=== PATIENT | female | born 1995 | race Caucasian/White ===

== ENCOUNTER 2022-07-17 07:23 | Inpatient (IN) | payer OTHER, SELFPAY ==
[2022-07-17] VITALS (42 sets, daily range): BP systolic 102–148; BP diastolic 61–92; PULSE 73–137; RESP 16–20; TEMP 36.4–37; O2SAT 96–100
[2022-07-17 09:21] LABS: SARS PCR* Negative SARS-CoV-2 (Negative)
--- NOTE | 2022-07-17 10:56 | PM.OBHPLI ---
OB - H&P: HPI Labor/Induction History of Present Illness Time Seen by Provider: 10:57 Date Seen: 07/17/22 Chief Complaint: The patient is a 26 year old 1 para 0 at 38+2 weeks gestation by 5w US, who presents with contractions. Chief complaint: Maternity : 1 Para: 0 Narrative: Fabiola Taylor is a 26 year old female who presents at 38+2 weeks gestation by 5 wk US with contractions. uncomplicated. GBS negative. Found to be 4.5 cm/100/0 in triage, changed to 6 cm over the course of 1 hour of observation. Breathing through contractions. No leaking fluid. Desires waterbirth. Labs Blood type: A (+) positive Rubella: immune RPR/VDLR: nonreactive GBS status: negative HBsAG: negative Review of Systems Status of ROS: Reports: 10 or more systems reviewed and unremarkable except as noted in History and below Meds Home Medications and Allergies Home Medications Medication Instructions Recorded Confirmed Type sertraline 25 mg tablet mg 07/17/22 History OB - H&P: Exam Physical Exam: Vital signs: Temp Pulse Resp BP Pulse Ox 97.5 F L 86 16 120/71 98 07/17/22 10:39 07/17/22 10:00 07/17/22 09:54 07/17/22 10:00 07/17/22 06:17 Narrative: General appearance: Well-appearing adult female. Alert, oriented and appropriate. Sitting up in waterbirth tub. Breathing through contractions. HEENT: EOMI, no conjunctival injection. Nares patent, no nasal discharge. Mucous membranes moist. Neck: Supple. Cardiovascular: Regular rate and rhythm, no rubs, murmurs or extra heart sounds. Pulmonary: Clear to auscultation bilaterally. No wheezes, rales or rhonchi. Abdomen: Gravid. MSK: Moves all extremities. Extremities: Warm and well perfused. Skin: No rashes appreciated over exposed skin. Neuro: Cranial nerves 2-12 grossly intact. No focal deficits. Psych: Appropriate affect. Detailed Labor and Delivery Exam: Dilation (cm): 7 Effacement (%): 100 Comments: Per nursing Fetus (Single): Station: 0 Heart Rate Baseline: 140 Monitor Decelerations: None Fetus B: Amniotic membrane status: intact OB - Problem Based A/P Additional Plan (1) Anxiety: Status: Acute (2) Term : Status: Acute Plan - Active labor. Progressing as expected - Desires waterbirth, low risk and no contraindications at this time - Intermittent monitoring. Current status reassuring - GBS negative - Anticipate vaginal delivery
--- NOTE | 2022-07-17 14:04 | W.PM.VAGDELN ---
OB Procedure Vag Delivery Mother Details Mother Details: The patient is a 26 year-old, 1, Para 0, admitted on 07/17/22 at 40+2 days gestation. : 1 Para: 0 Weeks Gestation: 40.2 Admission Date: 07/17/22 Additional Details Amniotic Membrane Status: SROM Amniotic Membrane Rupture Date: 07/17/22 Amniotic Membrane Fluid Description: Clear Analgesia/Anesthesia Type: None Waterbirth: Yes [place]: Yes Intrapartal Events: None Labor Onset: 0300 Pushin:48 Heart: heart tones during second stage were category I. Delivery Details Delivery Date: 07/17/22 Delivery Time: 14:15 Route of delivery: Gender: Male Viability: Alive; Heart Rate Present Position at Delivery: OA Delivery Details: Delivered over intact perineum via spontaneous vaginal delivery on hands and knees. Infant was placed on maternal chest in the waterbirth tub.? Cord was clamped and cut after a 3-5 minute delay. Nose and mouth were bulb suctioned.? Infant weight pending. Mother was assisted to hospital bed for delivery of placenta. 1 Minute Interval Total Score: 8 5 Minute Interval Total Score: 9 Additional Details Shoulder Dystocia: No Placenta Delivery Time: 13:30 Placental Delivery Description: Spontaneous Delivery repair: Vicryl Procedure Done: Global Estimated Blood Loss: 500 Laceration: Periurethral - 1st Degree Episiotomy Description: None Blood Loss Measurement Type: QBL (Estimated 300 cc in the waterbith tub + 200 cc measured in the drape.) Bakri Used: No Sponge/Need Count Correct: Yes Cord Vessel Description: 3 Vessels Event Summary Status: Mother and were stable after delivery.
[2022-07-17] MEDS: ACETAMINOPHEN 500 MG TABLET 1000 MG PO ×2 (14:29→20:28)
[2022-07-17] MEDS: IBUPROFEN 600 MG TABLET PO (18:22)
[2022-07-18] MEDS: IBUPROFEN 600 MG TABLET PO ×4 (01:36→23:08)
[2022-07-18 01:38] VITALS: BP 124/87; PULSE 75; RESP 16; TEMP 36.7; O2SAT 97
[2022-07-18 06:21] LABS: Hemoglobin* 10.5 gm/dL (12.0-16.0)
[2022-07-18] MEDS: ACETAMINOPHEN 500 MG TABLET 1000 MG PO ×3 (06:51→19:56)
[2022-07-18 07:55] VITALS: BP 113/75; PULSE 81; RESP 18; TEMP 36.5; O2SAT 97
[2022-07-18 11:40] VITALS: BP 126/83; PULSE 79; RESP 18; TEMP 36.6; O2SAT 97
[2022-07-18 16:44] VITALS: BP 127/82; PULSE 88; RESP 18; TEMP 36.4; O2SAT 96
--- NOTE | 2022-07-18 17:09 | P.OBPN_ITS ---
OB - PN:Subj Subjective Date Seen: 07/18/22 Interval history: Fabiola is a pp day 1 seen for routine follow up. she is nursing and this is going well. Bleeding is moderate to heavy with one larger clot this afternoon. Pain is well managed. Patient comments OB post-: pain well controlled and tolerating diet [place] status: and doing well feeding status: exclusively OB - PN: Obj Exam Physical Exam: Vital signs: Temp Pulse Resp BP Pulse Ox O2 Del Method 97.5 F L 88 18 127/82 96 07/18/22 16:44 07/18/22 16:44 07/18/22 16:44 07/18/22 16:44 07/18/22 16:44 07/18/22 16:44 Constitutional: Constitutional: no acute distress Routine Abdominal Exam: Fundus: Present firm Comments: 1 cm below umbilicus. OB - PN: Obj Data Labs Labs: Laboratory Results - last 24 hr 07/18/22 06:10 Hgb 10.5 L OB - PN: A/P Vaginal Delivery Assessment and Plan (1) Anxiety: Status: Acute (2) Term : Status: Acute Assessment and Plan: s/p vaginal delivery. Plan Routine post cares. Likely discharge tomorrow.
[2022-07-18 23:30] VITALS: BP 121/75; PULSE 76; RESP 18; TEMP 36.6; O2SAT 96
[2022-07-19] MEDS: ACETAMINOPHEN 500 MG TABLET 1000 MG PO (02:04)
[2022-07-19] MEDS: IBUPROFEN 600 MG TABLET PO (05:55)
[2022-07-19 07:55] VITALS: BP 120/83; PULSE 91; RESP 16; TEMP 36.6; O2SAT 96
[2022-07-19 08:26] LABS: Hemoglobin* 10.2 gm/dL (12.0-16.0)
--- NOTE | 2022-07-19 09:13 | PM.OBDSVD1 ---
DS: Providers Provider Date Seen: 07/19/22 Date of admission: 07/17/22 07:23 Primary care physician: Not a Local Provider Admitting Clinician: Aleisha Mackey MD Attending Physician on discharge: Aleisha Mackey MD DS: Diagnosis Discharge Diagnosis (1) Term : Status: Acute (2) Vaginal delivery: Status: Acute Exam Const: Vital Signs, click to edit/add: Vital Signs - 24 hr 07/18/22 11:40 07/18/22 16:44 07/18/22 23:30 Temperature 97.8 F 97.5 F L 97.9 F Pulse Rate [Right Pulse Oximeter] 79 88 76 Respiratory Rate 18 18 18 Blood Pressure [Ri ght Arm] 126/83 127/82 121/75 Pulse Oximetry 97 96 96 Oxygen Delivery Me thod Room Air Room Air Room Air 07/19/22 07:55 Temperature 97.9 F Pulse Rate [Right Pulse Oximeter] 91 Respiratory Rate 16 Blood Pressure [Ri ght Arm] 120/83 Pulse Oximetry 96 Oxygen Delivery Me thod Room Air Common normals: no apparent distress GI: Common normals: Normal to inspection, nondistended, normoactive bowel sounds present and soft to palpation Palpation: soft Other: uterus firm 1 cm below umbilicus OB - DS: Summary Hospital Course Hospital Course: The patient is a 26 year old G 1 P 1 at 38+2 weeks gestation that was admitted to the Center on 07/17/22 for active labor. She had an uncomplicated vaginal delivery. She delivered a viable male . She is breast feeding. the patient has done well. Peripartum Data Infant delivery method: Vaginal Laceration description: Perineal - 1st Degree complications: none [place] Infant Gender: Male Infant Discharge Plan: Home Status at Discharge Functional status at discharge: independent ambulation Overall status at discharge: patient is progressing back to baseline Time Spent with Patient Time attestation: Total time spent providing and/or coordinating discharge services: Time spent: Less than 30 minutes Discharge Plan Discharge Disposition: Home, Self-Care Date of Admission: 07/17/22 07:23 Primary Care Provider: Provider,Not a Local Condition: Improved Anticipated Discharge Date/Time: 07/19/22 09:16 Discharge Medications: Continued sertraline 25 mg tablet 25 mg PO Q24H Discharge Orders: Discharge Order (Routine); Ordered 07/19/22 Ordered By: Rosaura Oates Patient Education: OB Vaginal/Breast Feeding Activity Level: No Restrictions Activity Detail: nothing per vagina x6 weeks, off work x6 weeks. Discharge Diet: Regular Follow Up Appointments: Provider,Not a Local [Primary Care Provider] - Rosaura Oates MD [Staff Physician] - (in 6 weeks.) Forms: [facility] Info Instructions
[2022-07-19] MEDS: DOCUSATE SODIUM 100 MG CAPSULE PO (09:19)
== END 2022-07-19 13:41 | disposition home or self-care (01) | DRG 807 ==
LOC: OB OUT 07:24 → OB 07:24
PROVIDERS: Family Medicine; Admitting Provider Family Medicine; Visit Provider Family Medicine
DX: O70.0 First degree perineal laceration during delivery (principal); Z37.0 Single live birth; F41.9 Anxiety disorder, unspecified; Z3A.38 38 weeks gestation of pregnancy; O99.344 Other mental disorders complicating childbirth
CPT/HCPCS: 36415; 85018; 87635; A9270

== ENCOUNTER 2022-07-20 11:22 | Outpatient (CLI) | payer OTHER, SELFPAY ==
--- NOTE | 2022-07-20 16:35 | W.PM.LAC.MC ---
Consult Note - Mom Date of Visit Date of visit: 07/20/22 windows consultant: Alvina Last Visit Code: Visit Patient's Information Phone number: [phone] : 1 Para: 1 Allergies topiramate [From Topamax] Allergy (Mild, Verified 07/18/22 18:24) mushrooms Allergy (Intermediate, Uncoded 07/18/22 18:24) Mother's Medical History: Medical History (Updated 07/19/22 @ 09:14 by Rosaura Oates MD) depression/anxiety Delivery Information Delivery type: Vaginal Weeks Gestation: 38.0 Gestational Age: AGA Weight: 3.925 kg Discharge Weight: 3.697 kg Baby's Information Medications: sertraline, ibuprofen prn, mv, vitamin d Baby's Age at Visit: 3 days Baby's Provider or Clinic: Dr. Oates Jaundice: No Reason for Consult Reason for Consult: difficulty latching Past Experience Past Experience: No Current Frequency of Day Feedings: about every three hours around the clock Both Breasts: Yes Suck: not very aggressive Latch: fairly wide Length of Time: 10 - 15 minutes/side Pumping Pumping: No Supplementing EMB Supplement: No Formula Supplement: Yes (supplemented with 1 - 2 oz formula twice d/t difficulty latching/baby upset) Baby Elimination Number of Wet Diapers a Day: 2 - 3; uric acid crystals Number of BM a Day: no BM since D/C on 07/19 Breast/Nipple Condition Breast Information: WNL Engorgement: No (milk beginning to come in ) Maternal Nipple Condition - Left: Cracking/ Fissures Maternal Nipple Condition - Right: Common Nipple Sore Nipples: Yes Interventions for Sore Nipples: Lansinoh and Soothies Onsite Pre-Feed weight: 3.61 kg Post-Feed weight: 3.634 kg Milk Transferred (mL): 24 Pre-Nursing Left Nipple: Within Normal Limits (scabbing) Pre-Nursing Right Nipple: Within Normal Limits Post-Nursing Left Nipple: Within Normal Limits (scabbing ) Post-Nursing Right Nipple: Within Normal Limits Assessments/Interventions Assessments/Interventions: Met with mom and this now 3 day old ex- term AGA baby for consult. Mom reports has been very painful since D/C on 07/19 and her left nipple is cracked. Baby is nursing every three hours and she offers both sides, states a nursing session is 10 - 15 minutes/side. She hasn't started pumping yet but has a Spectra. Reports baby was given 1 - 2 oz formula twice since D/C when she was in too much pain to nurse. Breasts WNL- symmetrical with rounded lower quadrants, intramammary distance is < 1.5 cm. Nipples are shorter but everted and don't flatten or retract on compression. Left has stage II nipple damage with about a 2 mm fissure along the top that is beginning to scab, no damage to the right. Baby has lost 87 grams since D/C and is now 8% below BW at three DOL. Per POC he did not have a caput or cephalohematoma on delivery and in the short time he's been home they haven't noticed that he favors turning his head to one side or the other; also has good ROM when moving his extremities. His palate is narrower than normal, but not necessarily high. His upper lip was not difficult to flange and the upper frenulum appears to be WNL. He does not have a very aggressive suck on a finger but his tongue extends past the gum line and has good lateral movement. His lower frenulum appears to be WNL. POC report pink tinged urine at the last few diaper changes and no BM since D/C. Mom latched baby to the left breast and the latch was fairly wide but she rated her pain at 5/10 stating it was pinchy and that as the feeding progressed she began to have tingling/stinging/itchy sensation from the nipple into her breast. Some improvement when she was encouraged to really point her nipple to baby's nose and his upper frenulum was flanged. She switched baby to the right and that side was a little more comfortable. After about a 30 minute feeding baby had transferred 24 ml. He was still very hungry so dad was given 20 ml formula and shown how to pace feed. Plan: 1. Continue to breastfeed every 2 - 3 hours; ok to only nurse on the right for 12 - 24 hours it it's too painful to nurse on the left. Work on getting a deep latch with the flipple and dad can flange baby's upper lips to see if that increases the comfort. 2. Pump the left breast (or both) with every feeding. Nipples were measured and flange size suggested; also gave a flange fit guide. 3. Dad to supplement with 15 - 20 ml EBM or formula after every feeding (this feeding plan can be re-evaluated at his NB visit on 07/21/22). 4. To help strengthen his suck and help him flange the upper lip, gave dad three exercises to try: squishy face, rubbing the upper frenulum, and tug of war. 5. Suggested mom use colostrum and leave her nipples open to air to help them heal. 6. Will f/u by phone on 07/22/22. Meds Home Medications and Allergies Home Medications Medication Instructions Recorded Confirmed Type sertraline 25 mg tablet 25 mg PO Q24H 07/17/22 07/18/22 History Allergies Allergy/AdvReac Type Severity Reaction Status Date / Time topiramate [From Topamax] Allergy Mild Verified 07/18/22 18:24 mushrooms Allergy Intermediate Uncoded 07/18/22 18:24
== END 2022-07-20 11:23 | disposition home or self-care (01) ==
PROVIDERS: Visit Provider Family Medicine
DX: Z39.1 Encounter for care and examination of lactating mother (principal)
CPT/HCPCS: 99211

== ENCOUNTER 2024-08-27 10:32 | Emergency (ER) | payer BC, SELFPAY ==
--- OUTSIDE RECORDS SUMMARY | 2024-08-27 10:35 | XMS_ITS | Clinical Summary ---
Author Organization [employer] [facility] Address [facility] [place] [address] Care Team Providers Care Barytes Grinder Name Role Phone Rosaura Oates MD Primary Care Provider Allergies Active Allergy Reactions Criticality Noted Date Comments Duloxetine Anxiety 05/17/2021 Maitake Mushroom *Unknown High 07/18/2022 Mold Extracts 05/24/2010 Rash and swollen face Ragweed 05/24/2010 Topiramate *Unknown Low 07/18/2022 Medications multivitamin (MVI) tablet Take 1 Tablet by mouth once daily. 0 2 Active triamcinolone (ARISTOCORT; KENALOG) 0.1 % creamIndications:A cute eczema Apply topically to affected area(s) three times daily. 80 g 3 Active LORazepam (ATIVAN) 1 mg tabletIndications: Claustrophobia Take 1 Tablet (1 mg) by mouth one time for 1 dose. Take 30-60 minutes prior to MRI 1 Tablet 3 Active cyclobenzaprine (FLEXERIL) 10 mg tabletIndications: Chronic tension-type headache, intractable Take 1 Tablet (10 mg) by mouth 3 times daily if needed for Muscle Spasm. 30 Tablet 4 Active SUMAtriptan (IMITREX) 50 mg tabletIndications: Chronic migraine without aura without status migrainosus, not intractable Take 1 Tablet (50 mg) by mouth one time if needed for Migraine. Give at minimum 2hrs apart. Max Dose: 200mg per 24hrs. 15 Tablet 5 4 Active omeprazole 20 mg tabletIndications: Gastritis, presence of bleeding unspecified, unspecified chronicity, unspecified gastritis type Take 1 Tablet (20 mg) by mouth once daily before a meal. 90 Tablet 4 Active ondansetron 4 mg disintegrating tabletIndications: Nausea Place 1 Tablet (4 mg) on the tongue every 8 hours if needed for Nausea/Vomiti ng. 12 Tablet 5 Active Active Problems Problem Noted Date Diagnosed Date 12/23/2021 Overview (05/02/2022): Estimated Date of Delivery: 07/29/22 Patient's last menstrual period was 10/14/2021. US - 03/14/22 IMPRESSION: Sonographic gestational age 21 weeks 3 days and sonographic due date 07/22/2022. Sonographic age is 1 week ahead of the clinical age. No intrinsic abnormalities noted on anatomic survey. Last Tdap- 03/16/2018 Last Flu vaccine- 02/28/2022 Glucose (GTT) result- Component Latest Ref Rng & Units 04/27/2022 HEMOGLOBIN 12.0 - 16.0 g/dL 12.2 MCV 80 - 100 fL 94 GLUCOSE,GESTATIONAL 65 - 140 mg/dL 76 TREPONEMA PALLIDUM Negative Negative HEPATITIS C ANTIBODY Non-Reactive Non-Reactive Allergies Allergen Reactions Cymbalta [Duloxetine] Anxiety Mold Extracts Rash and swollen face Ragweed OB History Para Term AB Living 1 0 0 0 0 0 SAB IAB Ectopic Multiple Live Births 0 0 0 0 0 # Outcome Date GA Lbr Fareed/2nd Weight Sex Delivery Anes PTL Lv 1 Current Create lab flowsheet for OB labs- Component Latest Ref Rng & Units 11/18/2021 11/18/2021 11/18/2021 1:01 PM 1:01 PM 1:01 PM WHITE BLOOD COUNT 4.5 - 11.0 thou/cu mm 6.3 RED BLOOD COUNT 4.00 - 5.20 mil/cu mm 4.30 HEMOGLOBIN 12.0 - 16.0 g/dL 13.5 HEMATOCRIT 33.0 - 51.0 % 38.5 MCV 80 - 100 fL 90 MCH 26.0 - 34.0 pg 31.4 MCHC 32.0 - 36.0 g/dL 35.1 RDW 11.5 - 15.5 % 11.9 PLATELET COUNT 140 - 440 thou/cu mm 243 MPV 6.5 - 11.0 fL 9.0 NEUTROPHILS % 55.6 LYMPHOCYTES % 34.2 MONOCYTES % 8.9 EOSINOPHILS % 1.1 BASOPHILS % 0.2 ABSOLUTE NEUTROPHILS 1.7 - 7.0 thou/cu mm 3.5 ABSOLUTE LYMPHOCYTES 0.9 - 2.9 thou/cu mm 2.2 ABSOLUTE MONOCYTES <0.9 thou/cu mm 0.6 ABSOLUTE EOSINOPHILS <0.5 thou/cu mm 0.1 ABSOLUTE BASOPHILS <0.3 thou/cu mm 0.0 RUBELLA IGG ANTIBODY Positive 1.25 ANTIBODY SCREEN Negative Negative SPECIMEN EXPIRATION DATE/TIME 11/21/21 23:59 TREPONEMA PALLIDUM Negative Negative HBSAG Nonreactive Nonreactive ABORH A Rh Positive HIV-1/HIV-2 ANTIBODY Non-Reactive Non-Reactive Past Medical History: . Date Allergic rhinitis, cause unspecified Past Surgical History: . Laterality Date right tibia-fibula fx 07/18/06 TONSIL AND ADENOIDECTOMY 03/27/02 No data on file. 1 Problems (from 11/18/21 to present) No problems associated with this episode. Ness Santiago RN .................... 05/02/2022 11:33 AM Anxiety 06/28/2013 Constipation 01/07/2010 Acne 01/07/2010 Regular astigmatism 12/16/2005 Hypermetropia 12/16/2005 Estimated Date of Delivery Comme nts Yes 03/28/2025 Encounters Date Type Department Care Team Description 08/27/2024 Nurse Triage [facility] [address] [place] [address] Rosaura Oates MD Abdominal Pain 08/23/2024 1:10 PM CDT Office Visit [facility] [address] [place] [address] Adriana Leigh, Dysuria (Dysuria and low back pain, also feeling tingling before and after urinating and feeling like unable to fully empty starting 08/23 as well as small amount brownish discharge. ) 08/23/2024 Travel 08/23/2024 Nurse Triage [facility] [address] [place] [address] Rosaura Oates MD Urinary Problem 08/21/2024 Nurse Triage [facility] [address] [place] [address] Rosaura Oates MD Cervical pain 08/19/2024 1:45 PM CDT Ancillary Procedure [address] [address] 08/19/2024 Travel 08/14/2024 10:40 AM CDT OB Encounter [address] [address] Education (RN OB intake) 08/14/2024 Travel 08/12/2024 Telephone [facility] [address] [place] [address] Rosaura Oates MD Headache (Migraine); Nausea 06/21/2024 Telephone [facility] [address] [facility] [place] [address] Gucci Randolph MD Results 06/19/2024 9:10 AM TEST CONSULTANT Office [place] [facility] [address] [place] [address] Gucci Randolph MD Urinary Problem (Frequency, urgency) 06/19/2024 Travel from Last 3 Months Immunizations Immunization Administration Dates Next Due COVID-19 vaccine (Moderna 100mcg/0.5mL) PF, MDV 10/27/2020,09/29/2020 COVID-19 vaccine (Moderna Tima phoebe 50mcg/0.25mL) PF, MDV 07/06/2021 DTP 08/22/1997, 7,05/09/1996,02/21,1995 HIB PRP-OMP (PedvaxHIB) 11/26/1996,05/09,02/22/1996,12/20 Hepatitis B (Peds) 05/09/1996,1995, 996 Human Papilloma Virus Vaccine 11/30/2010, 008,01/17/2008 INFLUENZA, IIV3 PF (AGE >= 6 MO) 02/07/2024,06/2008 Influenza A (H1N1), Inactiva mari (Age >=3 Years) 03/23/2009 Influenza, IIV3 (Age >=3 years) 04/16/2010,06/22 Influenza, IIV4 02/24/2023,,05/07/2021,03/16,02/23/2017,01/26/2016,03/11/2015 MENINGOCOCCAL VACCINE 2 VIAL 2MO-55YO (MENVEO) 02/23/2017 MMR 11/03/2000,08/22/1997 Meningococcal, Unspecified 01/17/2008 Oral Polio Vaccine 08/22/1997, 7,02/22/1996,12/20 Tdap 05/27/2022,03/16/2018,01/17/2008 Family History Medical History Relation Name Comments Kidney cancer Father Diabetes insipidus Half-Sister 1 Jennifer Autism spectrum disorder Half-Sister 2 Addi No Known Problems Half-Sister 3 No Known Problems Half-Sister 4 No Known Problems Half-Sister 5 No Known Problems Half-Sister 6 Heart attack Maternal Grandfather Heart failure Maternal Grandmother Thyroid Disease Maternal Grandmother hypo thyroidism Seizures Maternal Uncle No Known Problems Mother No Known Problems Paternal Grandfather No Known Problems Paternal Grandmother Good Health Son Mcintosh Relation Name Status Comments Father Alive Half-Sister 1 Jennifer Alive Half-Sister 2 Addi Alive Half-Sister 3 Alive Half-Sister 4 Alive Half-Sister 5 Alive Half-Sister 6 Alive Maternal Grandfather Alive Maternal Grandmother Alive Maternal Uncle Mother Alive Paternal Grandfather Paternal Grandmother Alive Son Mcintosh Social History Tobacco Use Types Packs/Day Years Used Date Smoking Tobacco: Never Smokeless Tobacco: Never Tobacco Cessation:Counseling Given: Yes Comments:no exposure at home Alcohol Use Standard Drinks/Week Comments Not Currently 0 (1 standard drink = 0.6 oz pur e alcohol) PHQ-2 Answer Date Recorded PHQ-2 TOTAL SCORE 1 10/18/2023 Social Connections Answer Date Recorded Do you often feel lonely or isolated from those around you? 0 10/18/2023 Financial Resource Strain Answer Date R ecorded Difficulty of Paying Living Expenses 3 10/18/2023 Difficulty of Paying Living Expenses Not on file 10/18/2023 Food Insecurity Answer Date Recorded Do you worry your food will run out before you are able to buy more? 1 10/18/2023 Transportation Needs Answer Date Record ed Does lack of transportation keep you from medica l appointments? 1 10/18/2023 Does lack of transportation keep you from work, meetings or getting things that you need? 1 10/18/2023 Housing Stability Answer Date Recorded What is your housing situation today? 1 10/18/2023 Utilities Answer Date Recorded Do you have trouble paying f or utilities (for example, heat, electricity, water, phone)? 1 10/18/2023 Estimated Date of Delivery Comme nts Yes 03/28/2025 Sex and Gender Information Value Date Recorded Sex Assigned at Not on file Legal Sex Female 5:27 AM TEST CONSULTANT Gender Identity Not on file Sexual Orientation Not on file Obstetrics History Para Term AB IAB SAB Ectopic Multiple Livin g Live Births 2 1 1 1 1 Date Outcome GA Total Labor Labor/2nd/3rd Weight Sex Type Anes PTL Radha A1 A5 Name Clin 07/17 Term 38w 2d M Waterbi rth N Livin g Lincol n Complications:None Current Summary Episode Dates Number of Fetuses Estimated Date of Delivery 08/14/2024 - Present (08/27/2024) 03/28/2025 (set by Whitney Oakley LPN on 08/14/2024 based on Last Menstrual Period on 06/21/2024 (Exact Date)) Dating Summary Based On BEE GA Diff Last Menstrual Period on 06/21/2024 (Exact Date) 03/28/2025 Working Notes Progress Notes - OB Encounte r - 08/14/2024 - GA:7w5d 08/14/2024 - 7w5d - Ness Santiago, RN SUBJECTIVE: Fabiola Taylor is a 28 y.o. female, , who presents for confirmation and ob education. Patient presents to the clinic alone. Had positive test at home. This was Planned, Desired. Patient was not on contraception. Date Reliability: definite BEE based on LMP: Estimated Date of Delivery: 02/26/25 Current symptoms include: Nausea:Yes Vomiting:Yes - x1 only Breast tenderness:Yes Vaginal bleeding:No Vaginal discharge:Yes - creamier than usual, but no irritation or odor Pelvic cramping:Yes - mild menstrual cramping, comes and goes Fatigue:Yes - not sleeping well Previous Delivery Type: normal vaginal delivery- waterbirth Occupation of patient: [employer] Name of Partner or Father of baby: Ambroiso. MENSTRUAL HISTORY: Patient's last menstrual period was 05/22/2024 (exact date).: Cycle Regularity: regular, every 28-30 days Past Medical History: . Date Allergic rhinitis, cause unspecified Depression Migraine headache STD (sexually transmitted disease) 2009 chlamydia Varicella 1999 OB History Para Term AB Living 2 1 1 1 SAB IAB Ectopic Multiple Live Births 1 # Outcome Date GA Lbr Fareed/2nd Weight Sex Type Anes PTL Lv 2 Current 1 Term 07/17/22 38w2d M Waterbirth N RADHA 5P'S SUBSTANCE ABUSE SCREEN FOR ALCOHOL, DRUGS AND TOBACCO: Did any of your parents have a problem with using alcohol or drugs? No Do any of your friends (peers) have problems with drug or alcohol use? No Does your partner have a problem with drug or alcohol use? No Before you knew you were , how often did you drink beer, wine, wine coolers or liquor or use any kind of drug? Not at all In the past month, how often did you drink beer, wine, wine coolers or liquor or use any kind of drug? Not at all How much did you smoke, vape or use tobacco or nicotine in any form before you knew you were ? Don't Smoke, Vape or use Tobacco Genetic Screening No data filed CURRENT MEDICATIONS: Current Outpatient Medications Medication Sig cyclobenzaprine (FLEXERIL) 10 mg tablet Take 1 Tablet (10 mg) by mouth 3 times daily if needed for Muscle Spasm. LORazepam (ATIVAN) 1 mg tablet Take 1 Tablet (1 mg) by mouth one time for 1 dose. Take 30-60 minutes prior to MRI multivitamin (MVI) tablet Take 1 Tablet by mouth once daily. omeprazole 20 mg tablet Take 1 Tablet (20 mg) by mouth once daily before a meal. SUMAtriptan (IMITREX) 50 mg tablet Take 1 Tablet (50 mg) by mouth one time if needed for Migraine. Give at minimum 2hrs apart. Max Dose: 200mg per 24hrs. triamcinolone (ARISTOCORT; KENALOG) 0.1 % cream Apply topically to affected area(s) three times daily. No current facility-administered medications for this visit. Medications have been reviewed by me and are current to the best of my knowledge and ability. ALLERGIES: Maitake mushroom, Cymbalta [duloxetine], Mold extracts, Ragweed, and Topiramate OBJECTIVE: LMP 05/22/2024 (Exact Date) ,URINE (no units) Date Value 02/18/2013 Negative ASSESSMENT/PLAN: No diagnosis found. EDUCATION/PATIENT INSTRUCTIONS - Advised patient to start/continue vitamin. - Discussed risk of using alcohol, tobacco, other drugs in . - Discussed healthy lifestyle in . - Provided copy of [facility] book and book inserts, discussed nesc-owe-dsjlnst medications, and follow up. - Encouraged patient to call clinic at [phone] with any vaginal bleeding, fluid leaking from vagina, severe abdominal pain, nausea with severe vomiting, fever higher than 100.4F, painful urination, headache not relieved by Tylenol, or other concerns - labs completed with today's visit. - Patient informed to schedule 1st trimester dating ultrasound between 7-10 weeks. - Initial OB appointment with FP/OB scheduled. PHQ-9, and COVID-19 vaccine discussion to be completed at this visit. No future appointments. Ness Santiago RN .................... 08/14/2024 11:32 AM Last Filed Vital Signs Vital Sign Reading Time Taken Comments Blood Pressure 109/72 08/23/2024 1:23 PM CDT Pulse 76 08/23/2024 1:23 PM CDT Temperature 36.8 C (98.3 F) 08/23/2024 1:23 PM CDT Respiratory Rate 14 08/31/2021 1:43 PM CDT Oxygen Saturation 100% 04/03/2024 4:45 PM TEST CONSULTANT Inhaled Oxygen Concentration - - Weight 76.9 kg (169 lb 9.6 oz) 08/23/2024 1:23 P M CDT Height 165.1 cm (5' 5) 04/03/2024 4:45 PM TEST CONSULTANT Body Mass Index 28.22 04/03/2024 4:45 PM TEST CONSULTANT Plan of Treatment Upcoming Encounters Date Type Department Care Team (Late st Contact Info) Description 08/30/2024 10:55 AM CDT OB Encounter [facility] [address] [facility] [place] [address] Rosaura Oates MD [address] [facility] [address] 09/25/2024 10:55 AM CDT OB Encounter [facility] [address] [place] [address] Rosaura Oates MD [address] [facility] [address] 10/30/2024 10:55 AM CDT OB Encounter [facility] [address] [facility] [place] [address] Rosaura Oates MD [address] [facility] [place] [address] 11/27/2024 10:30 AM CDT OB Encounter [facility] [address] [facility] [place] [address] Rosaura Oates MD [address] [facility] [address] 01/01/2025 10:30 AM CDT OB Encounter [facility] [address] [place] [address] Rosaura Oates MD [address] [place] [address] Health Maintenance Due Date Last Done Comments Pap test for age 21-65 07/17/2023 07/17/2020, 2016 COVID-19 vaccine series ( season) 2024 07/06/2021, 10/27/2020, 09/29/2020 Depression screening for age 12+ 10/17/2024 10/18/2023, 08/30/2023, 09/19/2022, Additional history exists RSV vaccine for adults or (1 - Risk 1-dose series) 01/31/2025 BMI (ht and wt on same day) for age 18+ 04/03/2025 04/03/2024, 09/19/2022, 11/18/2021, Additional history exists Tetanus booster 05/27/2032 05/27/2022, 02/20, 01/17/2008 Tdap Completed 05/27/2022, 02/20, 01/17/2008 Influenza Vaccine Completed 02/07/2024, , 02/28/2022, Additional history exists HIV for age 15-65 Completed 08/14/2024, 11/18/2021 Hepatitis C screening for age 18-79 Completed 08/14/2024, 04/27/2022 Pneumococcal series for age 6-49 Aged Out No longer eligible based on patient's age to complete this topic Procedures Procedure Name Priority Date/Time Associated Diagnosis Comments URINALYSIS MACROSCOPIC - [facility] ONLY POC DIP ([facility]) Routine 08/23/2024 1:19 PM CDT Lower urinary tract symptoms (LUTS) URINE CULTURE Routine 08/23/2024 1:18 PM CDT Lower urinary tract symptoms (LUTS) US OB 1ST TRI SINGLE TA Routine 08/19/2024 2:08 PM CDT Encounter for supervision of other normal in first trimester (HC) TYPE & SCREEN Routine 08/14/2024 12:16 PM CDT Encounter for supervision of other normal in first trimester (HC) URINALYSIS MICROSCOPIC Routine 08/14/2024 12:16 PM CDT Encounter for supervision of other normal in first trimester (HC) ANTI HIV 1/2 Routine 08/14/2024 12:16 PM CDT Encounter for supervision of other normal in first trimester (HC) VARICELLA-ZOSTER V AB, IGG Routine 08/14/2024 12:16 PM CDT Encounter for supervision of other normal in first trimester (HC) CBC W PLT NO DIFF Routine 08/14/2024 12: 16 PM CDT Encounter for supervision of other normal in first trimester (HC) RUBELLA IMMUNE STATUS Routine 08/14/2024 12:16 PM CDT Encounter for supervision of other normal in first trimester (HC) HBSAG (HBS) Routine 08/14/2024 12:16 PM CDT Encounter for supervision of other normal in first trimester (HC) ANTI HCV Routine 08/14/2024 12:16 PM CDT Encounter for supervision of other normal in first trimester (HC) UA W/ SEDIMENT EXAM REFLEXED PER CRITERIA Routine 08/14/2024 12:16 PM CDT Encounter for supervision of other normal in first trimester (HC) TREPONEMA PALLIDUM Routine 08/14/2024 12 :16 PM CDT Encounter for supervision of other normal in first trimester (HC) URINE CULTURE Routine 08/14/2024 12:16 PM CDT Encounter for supervision of other normal in first trimester (HC) HCG BETA QUANT, Routine 06/19/2024 10:04 AM TEST CONSULTANT Missed period URINE CULTURE Routine 06/19/2024 9:16 AM TEST CONSULTANT Dysuria URINALYSIS MICROSCOPIC Routine 06/19/2024 9:16 AM TEST CONSULTANT Dysuria URINALYSIS MACROSCOPIC - [facility] ONLY POC DIP ([facility]) Routine 06/19/2024 9:15 AM TEST CONSULTANT Dysuria ANIMAL ANATOMY TEACHER THIN PREP PAP SCREEN IMAGED Routine 07/17/2020 8:45 AM TEST CONSULTANT Screening for cervical cancer from Last 3 Months or Most Recently Relevant to Health Maintenance Results * POCT Urinalysis Dipstick Only [[id number]] (08/23/2024 1:19 PM CDT) Only the most recent of2 resultswithin the time period is included. PH 5.5 5.0 - 8.0 [facility] SPECIFIC GRAVITY 1.010 1.001 - 1.035 [facility] GLUCOSE NEGATIVE NEGATIVE [facility] BILIRUBIN NEGATIVE NEGATIVE [facility] KETONES NEGATIVE NEGATIVE [facility] OCCULT BLOOD NEGATIVE NEGATIVE [facility] PROTEIN NEGATIVE NEGATIVE [facility] NITRITE NEGATIVE NEGATIVE [facility] LEUKOCYTE ESTERASE NEGATIVE NEGATIVE [facility] Urine URINE SPECIMEN / Unknown 08/23/2024 1:19 PM CDT 08/23/2024 1:19 PM CDT Adriana Leigh DO URINE Final Resu lt [facility] [address] [place] [address], [facility] [address] [place] [address] * URINE CULTURE [[id number]] (08/23/2024 1:18 PM CDT) Only the most recent of3 resultswithin the time period is included. CULTURE No growth (<1,000 CFU/mL) 08/25/2024 2:30 PM CDT [facility] Urine URINE SPECIMEN / Unknown Non-Blood / Unknown 08/23/2024 1:18 PM CDT 08/23/2024 1:18 PM CDT us Adriana Gomez Lu DO MICROBIOLOGY Final Resu lt [facility] [address] [place] [address], [place] * US 1ST TRIMESTER (< 14 weeks) [[id number]] (08/19/2024 2:08 PM CDT) Anatomical Region Laterality Modality , 1ST TRIMESTER Ultrasound 08/20/2024 6:42 AM CDT Impressions 08/20/2024 6:42 AM CDT Single living intrauterine measuring 8 weeks 2 days with sonographic due date 03/29/2025. Right fundal subchorionic hemorrhage measures 1.6 x 3.0 x 0.8 cm. Dictated by Michelet Herrera MD @ 08/20/2024 6:42:38 AM (Electronically Signed) Narrative 08/20/2024 6:42 AM CDT For Patients: As a result of the Century Cures Act, medical imaging exams and procedure reports are released immediately into your electronic medical record. You may view this report before your referring provider. If you have questions, please contact your health care provider. INDICATION: First trimester scan, establish dates. COMPARISON: None. TECHNIQUE: Real-time ruiz-scale imaging of the pelvis was performed. FINDINGS: Sonographic imaging demonstrates a single living intrauterine gestation. The embryo demonstrates a regular cardiac rate measuring 172 beats per minute. The embryo`s crown-rump length measurement of 1.7 cm corresponds to a gestational age of 8 weeks 2 days with a sonographic due date of 03/29/2025. There is a normal-appearing yolk sac. There are no gross abnormalities noted within the embryo at this early state of development. The gestational sac has a normal appearance. There is a 1.6 x 3.0 x 0.8 cm perigestational hemorrhage. The amount of fluid within the sac appears appropriate for gestational age. The cervix is closed. The myometrium appears normal. The ovaries are of normal size. There are no suspicious fluid collections noted in the cul-de-sac. Procedure Note Michelet Herrera MD - 08/20/2024 For Patients: As a result of the Cures Act, medical imagingexams and procedure reports are released immediately into your electronicmedical record. You may view this report before your referring provider.If you have questions, please contact your health care provider. INDICATION: First trimester scan, establish dates. COMPARISON: None. TECHNIQUE: Real-time ruiz-scale imaging of the pelvis was performed. FINDINGS: Sonographic imaging demonstrates a single living intrauterine gestation.The embryo demonstrates a regular cardiac rate measuring 172 beats perminute. The embryo`s crown-rump length measurement of 1.7 cm correspondsto a gestational age of 8 weeks 2 days with a sonographic due date of03/29/2025. There is a normal-appearing yolk sac. There are no grossabnormalities noted within the embryo at this early state of development.The gestational sac has a normal appearance. There is a 1.6 x 3.0 x 0.8 cmperigestational hemorrhage. The amount of fluid within the sac appearsappropriate for gestational age. The cervix is closed. The myometrium appears normal. The ovaries are ofnormal size. There are no suspicious fluid collections noted in [id number]. IMPRESSION: Single living intrauterine measuring 8 weeks 2 days withsonographic due date 03/29/2025. Right fundal subchorionic hemorrhage measures 1.6 x 3.0 x 0.8 cm. Dictated by Michelet Herrera MD @ 08/20/2024 6:42:38 AM (Electronically Signed) us Rosaura Oates MD Final R esult * VARICELLA-ZOSTER V AB, IGG (08/14/2024 12:16 PM CDT) VARICELLA ZOSTER VIRUS ANTIBODY (IGG) 14.60 S/CO [facility] Comment: Signal to Cut-off S/CO Interpretation --------- <1.00 Negative - Antibody not detected > or = 1.00 Positive - Antibody detected A positive result indicates that the patient has antibody to VZV but does not differentiate between an active or past infection. The clinical diagnosis must be interpreted in conjunction with the clinical signs and symptoms of the patient. This assay reliably measures immunity due to previous infection but may not be sensitive enough to detect antibodies induced by vaccination. Thus, a negative result in a vaccinated individual does not necessarily indicate susceptibility to VZV infection. A more sensitive test for vaccination-induced immunity is Varicella Zoster Virus Antibody Immunity Screen, ACIF. Blood BLOOD SPECIMEN / Unknown 08/14/2024 12:16 PM CDT 08/14/2024 12:17 PM CDT us Rosaura Oates MD LABORATORY Final R esult [facility] [address] [address], [facility] [address] * TREPONEMA PALLIDUM (08/14/2024 12:16 PM CDT) Pathologist [facility] TREPONEMA PALLIDUM Non-Reacti ve Non-Reacti ve 08/14/2024 11:42 PM CDT [facility] Blood BLOOD SPECIMEN / Unknown [facility] / Unknown 08/14/2024 12:16 PM CDT 08/14/2024 12:16 PM CDT us Rosaura Oates MD SEND OUTS Final R esult [facility] [address] [place] [address], * (ABNORMAL) URINALYSIS MICROSCOPIC (08/14/2024 12:16 PM CDT) Only the most recent of2 resultswithin the time period is included. Pathologist [facility] RBC 3-5(A) 0-2, None Seen /HPF 08/15/2024 12:21 AM CDT [facility] WBC 3-5 0-2, 3-5, None Seen /HPF 08/15/2024 12:21 AM CDT [facility] BACTERIA Rare None Seen, Rare, Few Bacteria/ HPF 08/15/2024 12:21 AM CDT [facility] EPITHELIAL CELLS None Seen None Seen, Few Epi/HPF 08/15/2024 12:21 AM CDT [facility] HYALINE CASTS 0-2 0-2, 3-5 /LPF 08/15/2024 12:21 AM CDT [facility] Urine URINE SPECIMEN / Unknown Non-Blood / Unknown 08/14/2024 12:16 PM CDT 08/14/2024 12:16 PM CDT Rosaura Oates MD URINE Final R esult [facility] [address] [place] [address], * RUBELLA IMMUNE STATUS (08/14/2024 12:16 PM CDT) RUBELLA AB (IGG), IMMUNE STATUS 1.95 Index [facility] dominic [facility]ust[facility] Comment: Index Interpretation ----- <0.90 Not consistent with immunity 0.90-0.99 Equivocal > or = 1.00 Consistent with immunity The presence of rubella IgG antibody suggests immunization or past or current infection with rubella virus. Blood BLOOD SPECIMEN / Unknown 08/14/2024 12:16 PM CDT 08/14/2024 12:17 PM CDT Rosaura Oates MD SEND OUTS Final R esult [facility] [address] [place] [address], [facility] [address] [place] [address] * TYPE AND SCREEN (08/14/2024 12:16 PM CDT) Pathologist [facility] ABORH A Rh Positive 08/15/2024 12:16 AM CDT [facility] ANTIBODY SCREEN Negative Negative 08/15/2024 12:16 AM CDT [facility] BLOOD BANK SPECIMEN EXPIRATION DATE/TIME 08/17/24 23:59 08/15/2024 12:16 AM CDT [facility] LAB BLOOD BANK Blood BLOOD SPECIMEN / Unknown [facility] / Unknown 08/14/2024 12:16 PM CDT 08/14/2024 12:16 PM CDT us Rosaura Oates MD BLOOD BANK Final R esult [facility] BLOOD BANK [address] [place] [address], [place] [phone] * HBSAG (HBS) (08/14/2024 12:16 PM CDT) [facility] HEPATITIS B SURFACE ANTIGEN NON-REACTI VE NON-REACTI VE [facility]adip [facility]ust[facility] Comment: For additional information, please refer to http://education.HStreaming/faq/PAY260 (This link is being provided for informational/ educational purposes only.) Blood BLOOD SPECIMEN / Unknown 08/14/2024 12:16 PM CDT 08/14/2024 12:17 PM CDT us Rosaura Oates MD SEND OUTS Final R esult [facility] [address] [place] [address], [place] [phone] [facility] [address] [place] [address] * ANTI HCV (08/14/2024 12:16 PM CDT) [facility] HEPATITIS C ANTIBODY NON-REACTI VE NON-REACT MEAGHAN [facility] Comment: HCV antibody was non-reactive. There is no laboratory evidence of HCV infection. In most cases, no further action is required. However, if recent HCV exposure is suspected, a test for HCV RNA (test code 85195) is suggested. For additional information please refer to http://education.HStreaming/faq/WIJ84i4 (This link is being provided for informational/ educational purposes only.) Blood BLOOD SPECIMEN / Unknown 08/14/2024 12:16 PM CDT 08/14/2024 12:17 PM CDT Rosaura Oates MD SEND OUTS Final R esult [facility] [address] [place] [address], [facility] [address] [place] [address] * CBC W PLT NO DIFF (08/14/2024 12:16 PM CDT) Pathologist [facility] WHITE BLOOD CELL COUNT 8.3 3.8 - 10.8 Thousand/u L [facility] RED BLOOD CELL COUNT 4.54 3.80 - 5.10 Million/uL [facility] HEMOGLOBIN 14.5 11.7 - 15.5 g/dL [facility] HEMATOCRIT 42.7 35.0 - 45.0 % [facility] MCV 94.1 80.0 - 100.0 fL [facility] MCH 31.9 27.0 - 33.0 pg [facility] MCHC 34.0 32.0 - 36.0 g/dL [facility] Comment: For adults, a slight decrease in the calculated MCHC value (in the range of 30 to 32 g/dL) is most likely not clinically significant; however, it should be interpreted with caution in correlation with other red cell parameters and the patient's clinical condition. RDW 11.6 11.0 - 15.0 % [facility] PLATELET COUNT 228 140 - 400 Thousand/u L [employer] dominic Bustos MPV 9.7 7.5 - 12.5 fL [facility] [employer] dominic Bustos Blood BLOOD SPECIMEN / Unknown 08/14/2024 12:16 PM CDT 08/14/2024 12:17 PM CDT Rosaura aOtes MD HEMATOLOGY Final R esult [facility] [address] [place] [address], [facility] [address] [place] [address] * (ABNORMAL) URINALYSIS W REFLEX MICROSCOPIC IF POSITIVE [65551.2] (08/14/2024 12:16 PM CDT) COLOR Yellow Yellow Color 08/15/2024 12:21 AM CDT [facility]-CE NTRAL LABORATORY CLARITY Clear Clear Clarity 08/15/2024 12:21 AM CDT [facility]- NTRAL LABORATORY SPECIFIC GRAVITY,URINE <=1.005(A) 1.010, 1.015, 1.020, 1.025 08/15/2024 12:21 AM CDT [facility] N[facility] LAB[facility] PH,URINE 6.5 6.0, 7.0, 8.0, 5.5, 6.5, 7.5, 8.5 08/15/2024 12:21 AM CDT [facility] N[facility]AL LABORAT[facility] UROBILINOGEN, QUALITATIVE Normal Normal EU/dl 08/15/2024 12:21 AM CDT [facility] N[facility]AL LAB[facility] PROTEIN, URINE Negative Negative mg/dL 08/15/2024 12:21 AM CDT [facility] N[facility]AL LABORAT[facility] GLUCOSE, URINE Negative Negative mg/dL 08/15/2024 12:21 AM CDT [facility]-CE NTRAL LABORATORY KETONES,URINE Negative Negative mg/dL 08/15/2024 12:21 AM T [facility]-CE NTRAL LABORATORY BILIRUBIN,URI NE Negative Negative 08/15/2024 12:21 AM CDT [facility] NTRLA LABORATORY OCCULT BLOOD,URINE Negative Negative 08/15/2024 12:21 AM CDT [facility] NTR[facility] LABOR[facility]ORY NITRITE Negative Negative 08/15/2024 12:21 AM CDT [facility] LEUKOCYTE ESTERASE Trace(A) Negative 08/15/2024 12:21 AM CDT [facility] Urine URINE SPECIMEN / Unknown Non-Blood / Unknown 08/14/2024 12:16 PM CDT 08/14/2024 12:16 PM CDT Rosuara Oates MD URINE Final R esult [facility] [address] [place] [address], [place] * ANTI HIV 1/2 (08/14/2024 12:16 PM CDT) [facility] HIV AG/AB, 4TH GEN NON-REACT MEAGHAN NON-REACT MEAGHAN [facility] Comment: HIV-1 antigen and HIV-1/HIV-2 antibodies were not detected. There is no laboratory evidence of HIV infection. PLEASE NOTE: This information has been disclosed to you from records whose confidentiality may be protected by state law. If your state requires such protection, then the state law prohibits you from making any further disclosure of the information without the specific written consent of the person to whom it pertains, or as otherwise permitted by law. A general authorization for the release of medical or other information is NOT sufficient for this purpose. For additional information please refer to http://education.Wiki-PR.[employer]ung[employer]/faq/PSN718 (This link is being provided for informational/ educational purposes only.) The performance of this assay has not been clinically validated in patients less than 2 years old. Blood BLOOD SPECIMEN / Unknown 08/14/2024 12:16 PM CDT 08/14/2024 12:17 PM CDT us Rosaura Oates MD SEND OUTS Final R esult Performing Organization Address City/[facility]/ZIP Co de Phone Number [facility] [address] [place] [address], [facility] [address] [place] [address] * HCG BETA QUANT, (06/19/2024 10:04 AM TEST CONSULTANT) HCG BETA QUANT,PREGNANC Y <1 mIU/mL 06/19/2024 4:47 PM TEST CONSULTANT [facility] Blood BLOOD SPECIMEN / Unknown [facility] / Unknown 06/19/2024 10:04 AM TEST CONSULTANT 06/19/2024 10:04 AM TEST CONSULTANT [facility] LAB[facility]ATORY - 06/19/2024 4:47 PM TEST CONSULTANT Expected Value for Healthy Non- premenopausal women <5.3mIU/mL FOR GESTATIONAL ASSESSMENT-See Range Table Below Weeks of gestation hCG mIU/mL 3 weeks gestation (5.8 - 71.2) 4 weeks gestation (9.5 - 750) 5 weeks gestation (217 - 7138) 6 weeks gestation (158 - 31,795) 7 weeks gestation (3,697 - 163,563) 8 weeks gestation (32,065 - 149,571) 9 weeks gestation (63,803 - 151,410) 10 weeks gestation (46,509 - 186,977) 12 weeks gestation (27,832 - 210,612) 14 weeks gestation (13,950 - 62,530) 15 weeks gestation (12,039 - 70,971) 16 weeks gestation (9,040 - 56,451) 17 weeks gestation (8,175 - 55,868) 18 weeks gestation (8,099 - 58,176) Biotin supplements may cause clinically significant interference for this test assay. If interference is suspected, it is strongly recommended that biotin is discontinued for at least one week prior to retesting. us Rosaura Oates MD CHEMISTRY Final R esult [facility] [address] [place] [address], [place] * ANIMAL ANATOMY TEACHER THIN PREP PAP SCREEN IMAGED [[id number]] (07/17/2020 8:45 AM TEST CONSULTANT) Case Report Gynecologic Cytology Report Case: [id number] Authorizing Provider: Rosaura Oates MD Collected: 07/17/2020 0845 Ordering Location: [facility] Received: 07/17/2020 0929 Clinic First Screen: Pepe Forte Specimen: ANIMAL ANATOMY TEACHER ThinPrep Vial Screening, Cervical 07/27/2020 10:42 AM TEST CONSULTANT [facility]AL LAB[facility]AT[facility] INTERPRETATION/ RESULT NEGATIVE FOR INTRAEPITHELIAL LESION OR MALIGNANCY (NIL) (none) 07/27/2020 10:42 AM TEST CONSULTANT [facility] ENTRAL LABORATORY at 1042 TEST CONSULTANT SPECIMEN ADEQUACY Satisfactory for evaluation Endocervical component present 07/27/2020 10:42 AM TEST CONSULTANT [facility] HPV REQUEST HPV if ASCUS 07/27/2020 10:42 AM TEST CONSULTANT [facility] Date of LMP 07/05/2020 07/27/2020 10:42 AM TEST CONSULTANT [facility] Last Pap Date 02/23/17 07/27/2020 10:42 AM TEST CONSULTANT [facility] Last Pap Result NIL 10:42 AM TEST CONSULTANT [facility] Abnormal Pap or Allred Bx in last 5 years No 07/27/2020 10:42 AM TEST CONSULTANT [facility] Menstrual Status Regular Periods 07/27/2020 10:42 AM TEST CONSULTANT [email or web address] Allred Bx Done Today No 07/27/2020 10:42 AM TEST CONSULTANT [email or web address] ENTRAL LAB[facility]AT[facility] Additional Information None given 07/27/2020 10:42 AM TEST CONSULTANT [email or web address] Comment: Cytology is screened at [facility] - [address], [place] [address] and [facility] - [address], [place] [address] and [facility] - [address] [place] [address] Interpreted at [facility] Central Laboratory - [address], [place] [address] Automated Review Successful 07/27/2020 10:42 AM TEST CONSULTANT [facility]-C ENTRAL LABORATORY Comment:Specimen processed s uccessfully by automated baker chef device, ThinPrep Imaging System, [employer] Note The pap test is a screening technique, not a diagnostic procedure. It is used primarily to screen for squamous cancers and precursor lesions. Published studies have shown that it is subject to both false negative and false positive results. The pap test should not be used as the sole means to diagnose or exclude pre-malignant and malignant lesions. 07/27/2020 10:42 AM TEST CONSULTANT [facility]- ENTRAL LABORATORY Other (Cervical) Non-Blood / Unknown 07/17/2020 8:45 AM TEST CONSULTANT 07/17/2020 9:29 AM TEST CONSULTANT us Rosaura Oates MD PATHOLOGY/CYTOLOGY Sandra Result [facility] [address] [place] [address], [place] from Last 3 Months or Most Recently Relevant to Health Maintenance Insurance [employer] Care Teams Barytes Grinder Relationship Specialty Start Date End Date Rosauar [place] [address] [place] [address] [place] [address] PCP - General Family Practice 07/25/19
[2024-08-27 10:46] VITALS: BP 128/75; PULSE 73; RESP 16; TEMP 36.6; O2SAT 98; BMI 28.1
--- NOTE | 2024-08-27 11:01 | ED.GENADULT ---
HPI - General Adult General Chief complaint: Abdominal Pain Stated complaint: 9 weeks - cramping and light headed Time Seen by Provider: 08/27/24 11:00 History of Present Illness HPI narrative: lower abd cramping on and off for 2 weeks. 9 weeks , BEE nov . denies bleeding. no nausea. 2 week ago us show subchorionic hemorrhage. does have vaginal sting, white discharge . 28-year-old presenting to the emergency with concern of pelvic or vaginal cramping. She describes it as feeling like when the speculum is opened during exam resulting in some cramping. 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 Lower left pelvis. Not necessarily more frequent. She has not been sexually active. Two weeks ago had an ultrasound showing what sounds like a small subchorionic hemorrhage this results not available to me at this time. She is worried in particular it appears that she might have cervical changes and would like an ultrasound to confirm that this is not the case. She has however had increased vaginal discharge with some itch that would seem to be atypical for . Has had a little bit of dysuria as well. No fevers. She became somewhat lightheaded she says with the discomfort this morning. Denies any bleeding. Has had some left-sided flank discomfort. all in all this is different from her prior and is worrisome. Continuing to have morning nausea and vomiting. Has tried doxylamine and vitamin B6. Some residual Zofran. Has been cautioned about defects with regular usage of this. Does have continued breast tenderness. Related Data Home Medications ?Medication ?Instructions ?Recorded ?Confirmed sertraline 25 mg tablet 25 mg PO Q24H 07/17/22 07/18/22 Previous Rx's ?Medication ?Instructions ?Recorded metoclopramide HCl 10 mg tablet 5 - 10 mg (0.5 - 1 x 10 mg) PO TID 08/27/24 (Reglan) PRN nausea and vomiting #15 tabs Allergies Allergy/AdvReac Type Severity Reaction Status Date / Time topiramate (From Topamax) Allergy Mild Verified 07/18/22 18:24 mushrooms Allergy Intermediate Uncoded 07/18/22 18:24 Review of Systems Status of ROS: Reports: 6 or more systems reviewed and unremarkable except as noted in History and below [facility] Medical History Vaginal delivery ?O80 - Encounter for full-term uncomplicated delivery (ICD-10) Surgical History (Updated 07/17/22 @ 11:04 by Aleisha Mackey MD) History of tonsillectomy and adenoidectomy ?Z90.89 - Acquired absence of other organs (ICD-10) Social History Smoking Status: Never smoker Do you use any of these nicotine containing products: None How often do you have a drink containing alcohol: never AUDIT-C Alcohol total score: 0 Non-prescribed substance use: denies use Exam Narrative: Exam Narrative: Pleasant. NAD. Mildly anxious. Mouth sounds dry. Skin is warm and dry. She is well-perfused. No lower extremity edema. Abdomen is soft minimal discomfort across the low pelvis. No flank pain. Heart in regular rate and rhythm. Breathing easily. Deferred pelvic exam Const: Vital Signs, click to edit/add: Vital Signs - 24 hr 08/27/24 10:46 08/27/24 13:01 Temperature 97.9 F 97.5 F L Pulse Rate [Pulse Oximeter] 73 64 Respiratory Rate 16 18 Blood Pressure [Ri ght Upper Arm] 128/75 115/69 Pulse Oximetry 98 100 Oxygen Delivery Me thod Room Air Room Air Documenting provider has reviewed patient's vital signs: yes Course Vital Signs Vital signs: Initial Vital Signs Temperature 97.9 F 08/27/24 10:46 Temperature Source Temporal Artery Scan 08/27/24 10:46 Pulse Rate 73 08/27/24 10:46 Respiratory Rate 16 08/27/24 10:46 Blood Pressure 128/75 08/27/24 10:46 Blood Pressure Mean 92 08/27/24 10:46 Blood Pressure Position Sitting 08/27/24 10:46 Pulse Oximetry 98 08/27/24 10:46 Oxygen Delivery Method Room Air 08/27/24 10:46 Vital Signs Temperature 97.9 F 08/27/24 10:46 Pulse Rate 73 08/27/24 10:46 Respiratory Rate 16 08/27/24 10:46 Blood Pressure 128/75 08/27/24 10:46 Pulse Oximetry 98 08/27/24 10:46 Oxygen Delivery Method Room Air 08/27/24 10:46 Temperature 97.5 F L 08/27/24 13:01 Pulse Rate 64 08/27/24 13:01 Respiratory Rate 18 08/27/24 13:01 Blood Pressure 115/69 08/27/24 13:01 Pulse Oximetry 100 08/27/24 13:01 Oxygen Delivery Method Room Air 08/27/24 13:01 Medications Administered Medications: Discontinued Medications Generic Name Dose Route Start Last Admin Trade Name Freq PRN Reason Stop Dose Admin Sodium Chloride 1,000 mls @ 1,200 mls/hr 08/27/24 13:35 08/27/24 14:40 0.9 % Sodium Chloride 1000 Ml IV 08/27/24 14:24 Infused .Q50M ONE Infusion Medical Decision Making MDM Narrative Medical decision making narrative: I did discuss bimanual check to confirm normal cervix. Her concern the would like certain cervical length. I am not sure that this is particularly relevant at 9 weeks of . We certainly can double check though. Can quantify or perhaps there is expanding subchorionic hemorrhage. Would have Fabiola self-check for wet prep and collect urinalysis otherwise. Symptoms generally appear reassuring. Indication: Pelvic Cramping LMP: 06/21/2024. Technique: Real-time sonographic images of the pelvis were obtained transvaginally using grayscale, color, and Doppler imaging. Comparison: 08/20/2024. Findings: Uterus: 3.8 x 3.3 x 0.7 centimeter subchorionic hemorrhage. Gestational sac: Mean sac diameter measures 4.2 centimeter, compatible with an average ultrasound age of 9 weeks 5 days. pole: [place]-rump length measures 2.5 centimeter, compatible with an average ultrasound age of 9 weeks 1 day. Yolk sac: Present. heart rate: 173 beats/min. Right ovary: Size: 3.8 x 2.5 x 2.8 centimeter. Appearance: Normal morphology. No masses. Preserved blood flow. Left ovary: Not visualized. Bladder: Visualized bladder is normal. Other: No free fluid. Impression: 1. Single live intrauterine with crown-rump length corresponding to 9 weeks 1 day. 2. 3.8 x 3.3 x 0.7 centimeter subchorionic hemorrhage. Dictated by Kelby Salcido MD @ 08/27/2024 12:28:29 PM Spent long time in conversation about symptoms and answering questions of concern. Did review report from approximally 2 week ago ultrasound for comparison. Cannot say that the size of this subchorionic bleed from then to now that it a changes are statistically significant/of concern. Discussed lack of visualization of left-sided ovary. I think that presentation does not suggest torsion. She notes how cyst had been present during last . Remains concerned that symptoms are different than her last . I wonder if some degree of constipation is contributing to increased discomfort. Fabiola decided that she would like IV as might be helpful with nausea and possibly her abdominal discomfort/cramping. Ordered for IV hydration with normal saline. Was discussing receiving this outpatient but she is not sure that she could accomplish this soon. On reassessment had improved and then headache flared again. Otherwise feeling reasonably well though with continued discomfort. See patient discharge plan for further discussion Focus on small frequent amounts of fluid intake. Be sure to eat a little something before you get up in the morning. Can continue with regularly dosed doxylamine, maybe even half a tablet, twice daily and vitamin B6 3 times daily. As discussed also prescribing you some Reglan. We [facility] not have it in [facility]. Little please discuss this medication in your OB follow-up at the end of this week. Try to take some MiraLax equivalent in liquid a couple of times daily ingesting to stool consistency. Return for marked increase in persistent pain, any regularity to the cramping, increasing bleeding particularly if bright red, fever. Medical Records Medical records reviewed: Yes I reviewed the patient's medical records Lab Data Lab results reviewed: Yes I reviewed the patient's lab results Labs: Lab Results 08/27/24 08/27/24 Range/Units 11:28 11:37 Urine Color Yellow (Yellow) Urine Appearance Clear (Clear) Urine pH 7.5 (5.0-8.5) Ur Specific [place] 1.015 (1.000-1.030) Urine Protein Negative (Negative) Urine Glucose (UA) Negative (Negative) Urine Ketones Negative (Negative) Urine Blood Negative (Negative) Urine Nitrite Negative (Negative) Urine Bilirubin Negative (Negative) Urine Urobilinogen 0.2 (0.2-1.0) Ur Leukocyte Esterase Trace A (Negative) Urine RBC 0-2 (0-2) Urine WBC 0-2 (0-5) Ur Squamous Epith Cells Moderate A (None-Few) Urine Bacteria Moderate A (None) Vaginal Bacterial Vaginosis Negative (Negative) Vaginal Jena species NOT DETECTED (No Detected) Vag C. glabrata/krusei NOT DETECTED (No Detected) Vag T. vaginalis NOT DETECTED (No Detected) Discharge Plan Discharge Clinical Impression: Pelvic cramping, Nausea and vomiting during , Subchorionic bleed Patient Disposition: Home, Self-Care Condition: Improved Additional Instructions: Focus on small frequent amounts of fluid intake. Be sure to eat a little something before you get up in the morning. Can continue with regularly dosed doxylamine, maybe even half a tablet, twice daily and vitamin B6 3 times daily. As discussed also prescribing you some Reglan. We [facility] not have it in [facility]. Little please discuss this medication in your OB follow-up at the end of this week. Try to take some MiraLax equivalent in liquid a couple of times daily ingesting to stool consistency. Return for marked increase in persistent pain, any regularity to the cramping, increasing bleeding particularly if bright red, fever. Prescriptions: New metoclopramide HCl [Reglan] 10 mg tablet 5 - 10 mg PO TID PRN (Reason: nausea and vomiting) Qty: 15 0RF No Action sertraline 25 mg tablet 25 mg PO Q24H Follow Up/Referrals: Provider,Not a Local [Primary Care Provider] - Stand Alone Forms: echoBase Info Instructions
--- NOTE | 2024-08-27 11:27 | CRLHL7_ITS ---
For Patients: As a result of the Century Cures Act, medical imaging exams and procedure reports are released immediately into your electronic medical record. You may view this report before your referring provider. If you have questions, please contact your health care provider. Indication: Pelvic Cramping LMP: 06/21/2024. Technique: Real-time sonographic images of the pelvis were obtained transvaginally using grayscale, color, and Doppler imaging. Comparison: 08/20/2024. Findings: Uterus: 3.8 x 3.3 x 0.7 centimeter subchorionic hemorrhage. Gestational sac: Mean sac diameter measures 4.2 centimeter, compatible with an average ultrasound age of 9 weeks 5 days. pole: [place]-rump length measures 2.5 centimeter, compatible with an average ultrasound age of 9 weeks 1 day. Yolk sac: Present. heart rate: 173 beats/min. Right ovary: Size: 3.8 x 2.5 x 2.8 centimeter. Appearance: Normal morphology. No masses. Preserved blood flow. Left ovary: Not visualized. Bladder: Visualized bladder is normal. Other: No free fluid. Impression: 1. Single live intrauterine with crown-rump length corresponding to 9 weeks 1 day. 2. 3.8 x 3.3 x 0.7 centimeter subchorionic hemorrhage. Dictated by Kelby Salcido MD @ 08/27/2024 12:28:29 PM (Electronically Signed)
[2024-08-27 11:45] LABS: Appearance Urine Clear (Clear); Bilirubin Urine Negative (Negative); Blood Urine Negative (Negative); Color Urine Yellow (Yellow); Glucose Urine Negative (Negative); Ketones Urine Negative (Negative); Leukocyte Esterase Urine Trace (Negative); Nitrite Urine Negative (Negative); Protein Urine Negative (Negative); Specific Gravity Urine 1.015 (1.000-1.030); Urobilinogen Urine 0.2 (0.2-1.0); pH Urine 7.5 (5.0-8.5)
[2024-08-27 11:50] LABS: RBC Urine 0-2 (0-2); Squamous Epithelial Cell Urine Moderate (None-Few); WBC Urine 0-2 (0-5)
[2024-08-27 11:51] LABS: Bacteria Urine Moderate
--- OUTSIDE RECORDS SUMMARY | 2024-08-27 12:28 | XMS_ITS | Clinical Summary ---
Author Organization [email or web address] Address [facility] [place] [address] Care Team Providers Care Cardiac Cath Lab Manager Name Role Phone Rosaura Oates MD Primary [...] Department Care Team Description 08/27/2024 Nurse Triage [facility] [address] [place] [address] Rosaura Oates MD Abdominal Pain 08/23/2024 1:10 PM CDT Office Visit [facility] [address] [place] [address] Adriana Leigh, Dysuria (Dysuria and low back pain, also feeling tingling before and after urinating and feeling like unable to fully empty starting 08/23 as well as small amount brownish discharge. ) 08/23/2024 Travel 08/23/2024 Nurse Triage [facility] [address] [place] [address] Rosaura Oates MD Urinary Problem 08/21/2024 Nurse Triage [facility] [address] [place] [address] Rosaura Oates MD Cervical pain 08/19/2024 1:45 PM CDT Ancillary Procedure [address] [address] 08/19/2024 Travel 08/14/2024 10:40 AM CDT OB Encounter [address] [address] Education (RN OB intake) 08/14/2024 Travel 08/12/2024 Telephone [facility] [address] [place] [address] Rosaura Oates MD Headache (Migraine); Nausea 06/21/2024 Telephone [facility] [address] [facility] [place] [address] Gucci Randolph MD Results 06/19/2024 9:10 AM MASCARA MOLDER Office Visit [facility] [address] [place] [address] Gucci Randolph MD Urinary Problem (Frequency, urgency) [...] Known Problems Paternal Grandmother Good Health Son Sutter Relation Name Status Comments Father Alive Half-Sister 1 Jennifer Alive Half-Sister 2 Addi Alive Half-Sister 3 Alive Half-Sister 4 Alive Half-Sister 5 Alive Half-Sister 6 Alive Maternal Grandfather Alive Maternal Grandmother Alive Maternal Uncle Mother Alive Paternal Grandfather Paternal Grandmother Alive Son Sutter Social History Tobacco Use Types Packs/Day Years [...] on file Legal Sex Female 5:27 AM MASCARA MOLDER Gender Identity Not on file Sexual Orientation [...] normal vaginal delivery- waterbirth Occupation of patient: [employer] Name of Partner or Father of baby: Ambrosio. MENSTRUAL HISTORY: Patient's last menstrual period was [...] of Beginnings book and book inserts, discussed [id number] medications, and follow up. - Encouraged patient to call clinic at [phone] with any vaginal bleeding, fluid leaking from [...] CDT Oxygen Saturation 100% 04/03/2024 4:45 PM MASCARA MOLDER Inhaled Oxygen Concentration - - Weight 76.9 kg (169 lb 9.6 oz) 08/23/2024 1:23 P M CDT Height 165.1 cm (5' 5) 04/03/2024 4:45 PM MASCARA MOLDER Body Mass Index 28.22 04/03/2024 4:45 PM MASCARA MOLDER Plan of Treatment Upcoming Encounters Date Type Department Care Team (Late st Contact Info) Description 08/30/2024 10:55 AM CDT OB Encounter [facility] [address] [place] [address] Rosaura Oates MD [address] [facility] [place] [address] 09/25/2024 10:55 AM CDT OB Encounter [facility] [address] [place] [address] Rosaura Oates MD [address] [facility] [place] [address] 10/30/2024 10:55 AM CDT OB Encounter [facility] [address] [place] [address] Rosaura Oates MD [address] [place] [address] 11/27/2024 10:30 AM CDT OB Encounter [facility] [address] [place] [address] Rosaura Oates MD [address] [facility] [place] [address] 01/01/2025 10:30 AM CDT OB Encounter [facility] [address] [facility] [place] [address] Rosaura Oates MD [address] [place] [address] Health Maintenance Due Date Last Done Comments [...] HCG BETA QUANT, Routine 06/19/2024 10:04 AM MASCARA MOLDER Missed period URINE CULTURE Routine 06/19/2024 9:16 AM MASCARA MOLDER Dysuria URINALYSIS MICROSCOPIC Routine 06/19/2024 9:16 AM MASCARA MOLDER Dysuria URINALYSIS MACROSCOPIC - [facility] ONLY POC DIP ([facility]) Routine 06/19/2024 9:15 AM MASCARA MOLDER Dysuria BRIDGE EXPERT THIN PREP PAP SCREEN IMAGED Routine 07/17/2020 8:45 AM MASCARA MOLDER Screening for cervical cancer from Last 3 Months or Most Recently Relevant to Health Maintenance Results * POCT Urinalysis Dipstick Only [[id number]] (08/23/2024 1:19 PM CDT) Only the most recent of2 resultswithin the time period is included. PH 5.5 5.0 - 8.0 [facility] SPECIFIC GRAVITY 1.010 1.001 - 1.035 [facility] GLUCOSE NEGATIVE NEGATIVE [facility] BILIRUBIN NEGATIVE NEGATIVE [facility] KETONES NEGATIVE NEGATIVE [facility] OCCULT BLOOD NEGATIVE NEGATIVE [facility] PROTEIN NEGATIVE NEGATIVE [facility] NITRITE NEGATIVE NEGATIVE [facility] LEUKOCYTE ESTERASE NEGATIVE NEGATIVE [facility] Urine URINE SPECIMEN / Unknown 08/23/2024 1:19 PM CDT 08/23/2024 1:19 PM CDT Adriana Leigh DO URINE Final Resu lt [facility] [address] [place] [address], [facility] [address] [place] [address] * URINE CULTURE [25497.2] (08/23/2024 1:18 PM CDT) Only the most recent of3 resultswithin the time period is included. CULTURE No growth (<1,000 CFU/mL) 08/25/2024 2:30 PM CDT [facility] Urine URINE SPECIMEN / Unknown Non-Blood / Unknown 08/23/2024 1:18 PM CDT 08/23/2024 1:18 PM CDT us Adriana Gomez Lu DO MICROBIOLOGY Final Resu lt [facility] [address] [place] [address], [place] * US 1ST TRIMESTER (< 14 weeks) [40090.0] (08/19/2024 2:08 PM CDT) Anatomical Region Laterality [...] are no suspicious fluid collections noted in [id number]. IMPRESSION: Single living intrauterine measuring 8 weeks 2 days withsonographic due date 03/29/2025. Right fundal subchorionic hemorrhage measures 1.6 x 3.0 x 0.8 cm. Dictated by Michelet Herrera MD @ 08/20/2024 6:42:38 AM (Electronically Signed) us Rosaura Oates MD Final R esult * VARICELLA-ZOSTER V AB, IGG (08/14/2024 12:16 PM CDT) VARICELLA ZOSTER VIRUS ANTIBODY (IGG) 14.60 S/CO [facility]her[facility] Comment: Signal to Cut-off S/CO Interpretation [...] Rosaura Oates MD LABORATORY Final R esult [facility] [address] [address], [employer] [address] * TREPONEMA PALLIDUM (08/14/2024 12:16 PM CDT) Pathologist [facility] TREPONEMA PALLIDUM Non-Reacti ve Non-Reacti ve 08/14/2024 11:42 PM CDT [facility] Blood BLOOD SPECIMEN / Unknown [facility] Collect / Unknown 08/14/2024 12:16 PM CDT 08/14/2024 12:16 PM CDT us Rosaura Oates MD SEND OUTS Final R esult [facility] [address] [place] [address], * (ABNORMAL) URINALYSIS MICROSCOPIC (08/14/2024 12:16 PM CDT) Only the most recent of2 resultswithin the time period is included. Pathologist [facility] RBC 3-5(A) 0-2, None Seen /HPF 08/15/2024 12:21 AM CDT [facility] WBC 3-5 0-2, 3-5, None Seen /HPF 08/15/2024 12:21 AM CDT [facility] BACTERIA Rare None Seen, Rare, Few Bacteria/ HPF 08/15/2024 12:21 AM CDT [facility] EPITHELIAL CELLS None Seen None Seen, Few Epi/HPF 08/15/2024 12:21 AM CDT [facility] HYALINE CASTS 0-2 0-2, 3-5 /LPF 08/15/2024 12:21 AM CDT [facility] Urine URINE SPECIMEN / Unknown Non-Blood / Unknown 08/14/2024 12:16 PM CDT 08/14/2024 12:16 PM CDT Rosaura Oates MD URINE Final R esult [facility] [address] [place] [address], * RUBELLA IMMUNE STATUS (08/14/2024 12:16 PM CDT) RUBELLA AB (IGG), IMMUNE STATUS 1.95 Index [facility]urdeep dominic Bustos Comment: Index Interpretation ----- <0.90 Not consistent with immunity 0.90-0.99 Equivocal > or = 1.00 Consistent with immunity The presence of rubella IgG antibody suggests immunization or past or current infection with rubella virus. Blood BLOOD SPECIMEN / Unknown 08/14/2024 12:16 PM CDT 08/14/2024 12:17 PM CDT Rosaura Oates MD SEND OUTS Final R esult [facility] [address] [place] [address], [facility] [address] [place] [address] * TYPE AND SCREEN (08/14/2024 12:16 PM CDT) Pathologist [facility] ABORH A Rh Positive 08/15/2024 12:16 AM CDT [facility] ANTIBODY SCREEN Negative Negative 08/15/2024 12:16 AM CDT [facility] BLOOD BANK SPECIMEN EXPIRATION DATE/TIME 08/17/24 23:59 08/15/2024 12:16 AM CDT [facility] B[facility]OD BANK Blood BLOOD SPECIMEN / Unknown [facility] Collect / Unknown 08/14/2024 12:16 PM CDT 08/14/2024 12:16 PM CDT us Rosaura Oates MD BLOOD BANK Final R esult [facility] B[facility]OD B[facility] [address] [place] [address], [place] [phone] * HBSAG (HBS) (08/14/2024 12:16 PM CDT) [facility] HEPATITIS B SURFACE ANTIGEN NON-REACTI VE NON-REACTI VE [facility] [facility] pradip Bustos Comment: For additional information, please refer to http://education.Jambo/faq/UAQ795 (This link is being provided for informational/ educational purposes only.) Blood BLOOD SPECIMEN / Unknown 08/14/2024 12:16 PM CDT 08/14/2024 12:17 PM CDT us Rosaura Oates MD SEND OUTS Final R esult [facility] [address] [place] [address], [place] [phone] [employer] [facility] [address] [place] [address] * ANTI HCV (08/14/2024 12:16 PM CDT) [facility] HEPATITIS C ANTIBODY NON-REACTI VE NON-REACT MEAGHAN [facility] Comment: HCV antibody was non-reactive. There is no laboratory evidence of HCV infection. In most cases, no further action is required. However, if recent HCV exposure is suspected, a test for HCV RNA (test code 16870) is suggested. For additional information please refer to http://education.Jambo/faq/QBO08o6 (This link is being provided for informational/ educational purposes only.) Blood BLOOD SPECIMEN / Unknown 08/14/2024 12:16 PM CDT 08/14/2024 12:17 PM CDT Rosaura Oates MD SEND OUTS Final R esult [facility] [address] [place] [address], [facility] [address] [place] [address] * CBC W PLT NO DIFF (08/14/2024 12:16 PM CDT) Pathologist [facility] WHITE BLOOD CELL COUNT 8.3 3.8 - 10.8 Thousand/u L [facility] RED BLOOD CELL COUNT 4.54 3.80 - 5.10 Million/uL [facility] [facility] HEMOGLOBIN 14.5 11.7 - 15.5 g/dL [facility] HEMATOCRIT 42.7 35.0 - 45.0 % [facility] MCV 94.1 80.0 - 100.0 fL [facility] MCH 31.9 27.0 - 33.0 pg [facility] MCHC 34.0 32.0 - 36.0 g/dL [facility] Comment: For adults, a slight decrease in the calculated MCHC value (in the range of 30 to 32 g/dL) is most likely not clinically significant; however, it should be interpreted with caution in correlation with other red cell parameters and the patient's clinical condition. RDW 11.6 11.0 - 15.0 % [facility] dominic [facility] PLATELET COUNT 228 140 - 400 Thousand/u L [employer] dominic Bustos MPV 9.7 7.5 - 12.5 fL [facility] [facility] dominic Bustos Blood BLOOD SPECIMEN / Unknown 08/14/2024 12:16 PM CDT 08/14/2024 12:17 PM CDT Rosaura Oates MD HEMATOLOGY Final R esult [facility] [address] [place] [address], [facility] [address] [place] [address] * (ABNORMAL) URINALYSIS W REFLEX MICROSCOPIC IF POSITIVE [11290.2] (08/14/2024 12:16 PM CDT) COLOR Yellow Yellow Color 08/15/2024 12:21 AM CDT [facility]-CE NTRAL LABORATORY CLARITY Clear Clear Clarity 08/15/2024 12:21 AM CDT [facility]- NTRAL LABORATORY SPECIFIC GRAVITY,URINE <=1.005(A) 1.010, 1.015, 1.020, 1.025 08/15/2024 12:21 AM CDT [facility]-CE NTRAL LABORAT[facility] PH,URINE 6.5 6.0, 7.0, 8.0, 5.5, 6.5, 7.5, 8.5 08/15/2024 12:21 AM CDT [facility]-CE NTRAL LABORATORY UROBILINOGEN, QUALITATIVE Normal Normal EU/dl 08/15/2024 12:21 AM CDT [facility] N[facility]AL LABORATORY PROTEIN, URINE Negative Negative mg/dL 08/15/2024 12:21 AM CDT [facility]-CE NTRAL LABORATORY GLUCOSE, URINE Negative Negative mg/dL 08/15/2024 12:21 AM CDT [facility]-CE NTRAL LABORATORY KETONES,URINE Negative Negative mg/dL 08/15/2024 12:21 AM T [facility]-CE NTRAL LABORATORY BILIRUBIN,URI NE Negative Negative 08/15/2024 12:21 AM CDT [facility] NTRSD LABORATORY OCCULT BLOOD,URINE Negative Negative 08/15/2024 12:21 AM CDT [facility] NTRSD LABORATORY NITRITE Negative Negative 08/15/2024 12:21 AM CDT [facility] LEUKOCYTE ESTERASE Trace(A) Negative 08/15/2024 12:21 AM CDT [facility] Urine URINE SPECIMEN / Unknown Non-Blood / Unknown 08/14/2024 12:16 PM CDT 08/14/2024 12:16 PM CDT Rosaura Oates MD URINE Final R esult [facility] [address] [place] [address], [place] * ANTI HIV 1/2 (08/14/2024 12:16 PM CDT) [facility] HIV AG/AB, 4TH GEN NON-REACT MEAGHAN NON-REACT MEAGHAN [facility] Comment: HIV-1 antigen and HIV-1/HIV-2 antibodies were [...] purpose. For additional information please refer to http://education.Kahuna.ThingWorx/faq/TWW396 (This link is being provided for informational/ educational purposes only.) The performance of this assay has not been clinically validated in patients less than 2 years old. Blood BLOOD SPECIMEN / Unknown 08/14/2024 12:16 PM CDT 08/14/2024 12:17 PM CDT us Rosaura Oates MD SEND OUTS Final R esult Performing Organization Address City/[facility]/ZIP Co de Phone Number [facility] [address] [place] [address], [facility] [address] [place] [address] * HCG BETA QUANT, (06/19/2024 10:04 AM MASCARA MOLDER) HCG BETA QUANT,PREGNANC Y <1 mIU/mL 06/19/2024 4:47 PM MASCARA MOLDER [facility] Blood BLOOD SPECIMEN / Unknown [facility] Collect / Unknown 06/19/2024 10:04 AM MASCARA MOLDER 06/19/2024 10:04 AM MASCARA MOLDER [facility] LABORATORY - 06/19/2024 4:47 PM MASCARA MOLDER Expected Value for Healthy Non- premenopausal women [...] Rosaura Oates MD CHEMISTRY Final R esult [facility] [address] [place] [address], [place] * BRIDGE EXPERT THIN PREP PAP SCREEN IMAGED [[id number]] (07/17/2020 8:45 AM MASCARA MOLDER) Case Report Gynecologic Cytology Report Case: [id number] Authorizing Provider: Rosaura Oates MD Collected: 07/17/2020 0845 Ordering Location: [facility] Received: 07/17/2020 0929 Clinic First Screen: Pepe Forte Specimen: BRIDGE EXPERT ThinPrep Vial Screening, Cervical 07/27/2020 10:42 AM MASCARA MOLDER [facility] INTERPRETATION/ RESULT NEGATIVE FOR INTRAEPITHELIAL LESION OR MALIGNANCY (NIL) (none) 07/27/2020 10:42 AM MASCARA MOLDER [facility] at 1042 MASCARA MOLDER SPECIMEN ADEQUACY Satisfactory for evaluation Endocervical component present 07/27/2020 10:42 AM MASCARA MOLDER [facility] HPV REQUEST HPV if ASCUS 07/27/2020 10:42 AM MASCARA MOLDER [facility] Date of LMP 07/05/2020 07/27/2020 10:42 AM MASCARA MOLDER [facility] Last Pap Date 02/23/17 07/27/2020 10:42 AM MASCARA MOLDER [facility] Last Pap Result NIL 10:42 AM MASCARA MOLDER [facility] Abnormal Pap or [place] Bx in last 5 years No 07/27/2020 10:42 AM MASCARA MOLDER [facility] Menstrual Status Regular Periods 07/27/2020 10:42 AM MASCARA MOLDER [facility] [place] Bx Done Today No 07/27/2020 10:42 AM MASCARA MOLDER [facility] ENTRAL LABORATORY Additional Information None given 07/27/2020 10:42 AM MASCARA MOLDER [facility] Comment: Cytology is screened at [facility] - [address], [place] [address] and [facility] - [address], [place] [address] and [facility] - [address] [place] [address] Interpreted at [facility] - [address], [place] [address] Automated Review Successful 07/27/2020 10:42 AM MASCARA MOLDER [facility]-C ENTRAL LABORATORY Comment:Specimen processed s uccessfully by automated medical assistant ob gyn device, ThinPrep Imaging System, [employer] Note The pap test is a screening technique, not a diagnostic procedure. It is used primarily to screen for squamous cancers and precursor lesions. Published studies have shown that it is subject to both false negative and false positive results. The pap test should not be used as the sole means to diagnose or exclude pre-malignant and malignant lesions. 07/27/2020 10:42 AM MASCARA MOLDER [facility]- ENTRAL LABORATORY Other (Cervical) Non-Blood / Unknown 07/17/2020 8:45 AM MASCARA MOLDER 07/17/2020 9:29 AM MASCARA MOLDER us Rosaura Oates MD PATHOLOGY/CYTOLOGY Sandra Result [facility] [address] [place] [address], [place] from Last 3 Months or Most Recently Relevant to Health Maintenance Insurance [facility] [employer]VA [employer] Care Teams Cardiac Cath Lab Manager Relationship Specialty Start Date End Date Rosaura Oates [place] [address] PCP - General Family Practice 07/25/19
[2024-08-27 12:38] LABS: Bacterial Vaginosis* Negative (Negative); Candida glab/krus NOT DETECTED (No Detected); Candida species NOT DETECTED (No Detected); Trichomonas vaginalis NOT DETECTED (No Detected)
[2024-08-27 13:01] VITALS: BP 115/69; PULSE 64; RESP 18; TEMP 36.4; O2SAT 100
[2024-08-27] MEDS: 0.9 % SODIUM CHLORIDE 1000 ml 1,000 ML 1200 ML IV (13:47)
== END 2024-08-27 15:04 | disposition home or self-care (01) ==
PROVIDERS: Emergency Provider Family Medicine
DX: O46.8X1 Other antepartum hemorrhage, first trimester (principal); O21.9 Vomiting of pregnancy, unspecified; R25.2 Cramp and spasm; Z3A.09 9 weeks gestation of pregnancy
CPT/HCPCS: 76817; 81001; 81513; 87086; 87210; 87481; 87661; 93976; 99284; J7030

== ENCOUNTER 2025-01-10 13:42 | Outpatient (CLI) | payer BC, SELFPAY ==
[2025-01-10] VITALS (28 sets, daily range): BP systolic 110–115; BP diastolic 62; PULSE 74–92; RESP 16–18; TEMP 36.9; O2SAT 95–100
[2025-01-10 14:24] LABS: Hematocrit 31.8 % (33.0-51.0); Hemoglobin* 10.5 gm/dL (12.0-16.0); Immature Granulocytes Abs Auto 0.28 K/uL (0.00-0.30); Immature Granulocytes Pct Auto 3.3 %; Lymphocytes Absolute Auto 1.40 K/uL (0.90-2.90); Mean Corpuscular HGB Conc 33 gm/dL (32-36); Mean Corpuscular Hemoglobin 30 pg (26-34); Mean Corpuscular Volume 91 fL (80-100); RDW Coefficient of Variation % 12.2 % (11.5-15.5); Red Blood Count 3.48 m/uL (4.00-5.20); White Blood Count* 8.40 K/uL (4.50-11.00)
[2025-01-10 14:25] LABS: Slide Review Reflex No
[2025-01-10 14:36] LABS: Albumin* 3.5 g/dL (3.3-5.0); Chloride* 105 mmol/L (96-114); Potassium* 3.9 mmol/L (3.6-5.1); Sodium* 132 mmol/L (135-149)
[2025-01-10 14:39] LABS: Alanine Aminotransferase* 18 U/L (4-35); Alkaline Phosphatase* 73 U/L (40-150); Anion Gap 4 mEq/L (7-15); Aspartate Amino Transferase* 27 U/L (12-35); Bilirubin Total* 0.2 mg/dL (0.1-1.5); Blood Urea Nitrogen* 8 mg/dL (5-24); Calcium* 9.2 mg/dL (8.4-10.6); Carbon Dioxide* 23 mmol/L (20-32); Creatinine* 0.6 mg/dL (0.5-1.5); Estimated Glomerular Filt Rate 125 ml/min; Glucose* 96 mg/dL (60-115); Total Protein* 6.1 g/dL (6.0-8.3)
--- NOTE | 2025-01-10 16:19 | PM.OBLDTN ---
OB - Triage/Final Diagnosis Visit Information Time Seen by Provider: 16:19 Date Seen: 01/10/25 Date of evaluation: 01/10/25 Narrative: The patient is a 29 year old 2 para 1 at 29+0 weeks gestation, who presents with SOB and fatigue. has been uncomplicated. Endorses fatigue starting a few days ago. Has also been feeling more SOB, decreased exercise tolerance as her has progressed. This AM, felt her SOB was more noticeable than in prior days, felt harder to take a deep breath. In addition, began to notice some central chest discomfort around 11 AM. Has also felt some tingling in her bilateral arms, L>R. She denies fever/chills/sweats. No sore throat, nasal congestion or cough. No abdominal pain, vomiting or diarrhea. Denies calf pain, redness, swelling or warmth. Intermittent pelvic cramping, though this is not new for her this . No contractions. Normal movement. She had scant blood on toilet paper this AM. Gone when she wiped a second time. No change in discharge. No vaginal itching/pain. No dysuria. Denies headache or visual changes. Evaluation Laboratory results: Laboratory Tests 01/10/25 Range/Units 14:15 WBC 8.40 (4.50-11.00) K/uL RBC 3.48 L (4.00-5.20) m/uL Hgb 10.5 L (12.0-16.0) gm/dL Hct 31.8 L (33.0-51.0) % MCV 91 (80-100) fL MCH 30 (26-34) pg MCHC 33 (32-36) gm/dL RDW Coeff of Liza 12.2 (11.5-15.5) % Plt Count 159 (140-440) K/uL Neut % (Auto) 70.2 (42.0-72.0) % Lymph % (Auto) 16.1 L (20-44) % Travis % (Auto) 9.0 (0.0-11.0) % Eos % (Auto) 1.3 (0.0-7.0) % Baso % (Auto) 0.1 (0.0-3.0) % Neut # (Auto) 5.89 (1.7-7.0) K/uL Lymph # (Auto) 1.40 (0.90-2.90) K/uL Travis # (Auto) 0.80 (0.00-0.90) K/UL Eos # (Auto) 0.11 (0.00-0.50) K/uL Baso # (Auto) 0.01 (0.00-0.30) K/uL Abs Immat Gran (auto) 0.28 (0.00-0.30) K/uL Imm/Tot Granulo (auto) 3.3 % Sodium 132 L (135-149) mmol/L Potassium 3.9 (3.6-5.1) mmol/L Chloride 105 (96-114) mmol/L Carbon Dioxide 23 (20-32) mmol/L Anion Gap 4 L (7-15) mEq/L BUN 8 (5-24) mg/dL Creatinine 0.6 (0.5-1.5) mg/dL Estimated GFR 125 ml/min Glucose 96 (60-115) mg/dL Calcium 9.2 (8.4-10.6) mg/dL Total Bilirubin 0.2 (0.1-1.5) mg/dL AST 27 (12-35) U/L ALT 18 (4-35) U/L Alkaline Phosphatase 73 (40-150) U/L Total Protein 6.1 (6.0-8.3) g/dL Albumin 3.5 (3.3-5.0) g/dL Vital signs: Vital Signs - 24 hr 01/10/25 13:48 01/10/25 13:49 01/10/25 13:53 Temperature Pulse Rate 80 Respiratory Rate Blood Pressure 110/62 Pulse Oximetry 99 100 01/10/25 13:58 01/10/25 14:03 01/10/25 14:08 Temperature Pulse Rate Respiratory Rate Blood Pressure Pulse Oximetry 97 97 98 01/10/25 14:13 01/10/25 14:18 01/10/25 14:23 Temperature Pulse Rate Respiratory Rate Blood Pressure Pulse Oximetry 98 99 99 01/10/25 14:28 01/10/25 14:33 01/10/25 14:38 Temperature Pulse Rate Respiratory Rate Blood Pressure Pulse Oximetry 98 96 97 01/10/25 14:43 01/10/25 14:48 01/10/25 15:15 Temperature Pulse Rate Respiratory Rate Blood Pressure Pulse Oximetry 97 97 98 01/10/25 15:20 01/10/25 15:25 01/10/25 15:30 Temperature Pulse Rate Respiratory Rate Blood Pressure Pulse Oximetry 97 96 95 01/10/25 15:35 01/10/25 15:40 01/10/25 15:45 Temperature Pulse Rate Respiratory Rate Blood Pressure Pulse Oximetry 97 97 97 01/10/25 15:50 01/10/25 15:55 01/10/25 16:00 Temperature Pulse Rate Respiratory Rate Blood Pressure Pulse Oximetry 99 99 98 01/10/25 16:05 01/10/25 16:10 01/10/25 16:11 Temperature 98.4 F Pulse Rate 75 Respiratory Rate 18 Blood Pressure 115/62 Pulse Oximetry 97 98 Comments: General appearance: Well-appearing adult female. Alert, oriented and appropriate. Sitting up in hospital bed. HEENT: EOMI, no conjunctival injection or discharge. MMM. Neck: Supple. CV: RRR, no rubs, murmurs or extra heart sounds. Pulm: CTAB, no wheezes, rales or rhonchi. Abdomen: Soft, non-tender. Gravid. MSK: Moving all extremities. Ext: Warm and well-perfused. No LE edema. No calf tenderness. Skin: No rashes appreciated over exposed skin. Neuro: Grossly normal strength and sensation. No focal deficits. Psych: Normal affect. Fetus (Single) Heart Rate Baseline: 145 Mcfp Variability: Moderate (6-25) Monitor Accelerations: Present Monitor Decelerations: None Final Diagnosis (1) SOB (shortness of breath): Status: Acute Problem details: Patient is overall well-appearing. Evaluation shows normal vital signs without tachycardia or hypoxia. Cardiac and respiratory exam are WNL. Labs show mild anemia with Hgb 10.5, otherwise WNL. EKG shows NSR without ST or T wave changes. Reactive NST and no contractions on the monitor. Discussed with the patient I suspect her symptoms are related to anemia and progressing . Also considered PE, but I do not feel that her presentation justifies CT PE run at this time given the risks in . Recommend replacing iron, close monitoring and follow-up. She is agreeable. Will set up follow-up appointment with Dr. Oates early next week. Discussed if worsening or progressive symptoms over the weekend, she should be re-evaluated. (2) Fatigue: Status: Acute (3) Anemia affecting : Status: Acute Problem details: Prescription for ferrous sulfate sent to the pharmacy.
--- NOTE | 2025-01-10 21:05 | PC.OBNST ---
NST Note NST Note Start: 01/10/25 13:50 Freq: ONCE Status: Active Protocol: Document 01/10/25 16:20 JRLu (Rec: 01/10/25 21:05 JRLu [id number]) NST Note 2 Para (# of births) 1 EDC 03/28/25 Gestational Age In 29 Weeks & 0 Days Weeks & Days Patient Presented Other with Complaint(s) of Other Complaints Chest pain, SOB, Lt arm tingling, cramping Reactive Yes Appropriate for Yes Gestational Age RN Shana Davidson RN Date 01/10/25 Reactive Yes Appropriate for Yes Gestational Age SERGIO Wynn RN Date 01/10/25 OB NST charge Yes Complete NST Note Yes via Write Note The provider's electronic signature indicates the NST is reactive/appropriate for gestational age. *Note to provider: If an addendum is required, open the patient's chart and click on the note under the Nurse/Allied Health tab.
== END 2025-01-10 16:20 | disposition home or self-care (01) ==
LOC: OB OUT 13:42 → OB 13:43
PROVIDERS: Visit Provider Family Medicine
DX: O26.893 Other specified pregnancy related conditions, third trimester (principal); R06.02 Shortness of breath; R53.83 Other fatigue; R20.2 Paresthesia of skin; Z3A.29 29 weeks gestation of pregnancy
CPT/HCPCS: 36415; 59025; 80053; 85025; 93005; 99199; G0463

== ENCOUNTER 2025-03-11 15:18 | Outpatient (CLI) | payer BC, SELFPAY ==
[2025-03-11] VITALS (8 sets, daily range): BP systolic 111–129; BP diastolic 58–76; PULSE 77–85
[2025-03-11 16:24] LABS: Hematocrit* 34.5 % (33.0-51.0); Hemoglobin* 11.7 gm/dL (12.0-16.0); Immature Granulocytes Abs Auto 0.18 K/uL (0.00-0.30); Immature Granulocytes Pct Auto 2.6 %; Mean Corpuscular HGB Conc 34 gm/dL (32-36); Mean Corpuscular Hemoglobin 32 pg (26-34); Mean Corpuscular Volume 94 fL (80-100); RDW Coefficient of Variation % 14.7 % (11.5-15.5); Red Blood Count* 3.68 m/uL (4.00-5.20); White Blood Count* 6.94 K/uL (4.50-11.00)
[2025-03-11] MEDS: LACTATED RINGERS 1000 ML 1,000 ML IV (16:28)
[2025-03-11 16:30] LABS: Lymphocytes Absolute Auto 1.20 K/uL (0.90-2.90); Slide Review Reflex No
[2025-03-11 16:42] LABS: Blood Urea Nitrogen* 3 mg/dL (5-24); Creatinine* 0.4 mg/dL (0.5-1.5); Estimated Glomerular Filt Rate 137 ml/min
[2025-03-11 16:43] LABS: Alanine Aminotransferase* 11 U/L (4-35); Aspartate Amino Transferase* 25 U/L (12-35)
[2025-03-11 17:13] LABS: Protein Creatinine Ratio Urine 0.17 (0-0.19)
--- NOTE | 2025-03-11 20:02 | PC.OBNST ---
NST Note NST Note Start: 03/11/25 15:25 Freq: ONCE Status: Active Protocol: Document 03/11/25 20:00 Lu (Rec: 03/11/25 20:02 Lu [id number]) NST Note 2 Para (# of births) 1 EDC 03/28/25 Gestational Age In 37 Weeks & 4 Days Weeks & Days Patient Presented Headache with Complaint(s) of Reactive Yes Appropriate for Yes Gestational Age RN Shana Davidson RN Date 03/11/25 Reactive Yes Appropriate for Yes Gestational Age SERGIO Saenz RN Date 03/11/25 OB NST charge Yes Complete NST Note Yes via Write Note The provider's electronic signature indicates the NST is reactive/appropriate for gestational age. *Note to provider: If an addendum is required, open the patient's chart and click on the note under the Nurse/Allied Health tab.
== END 2025-03-11 17:39 | disposition home or self-care (01) ==
LOC: OB OUT 15:18 → OB 15:19
PROVIDERS: Visit Provider Family Medicine
DX: O26.893 Other specified pregnancy related conditions, third trimester (principal); R51.9 Headache, unspecified; Z3A.37 37 weeks gestation of pregnancy
CPT/HCPCS: 36415; 59025; 82565; 82570; 84156; 84450; 84460; 84520; 85025; G0463; J7120

== ENCOUNTER 2025-03-25 13:34 | Outpatient (CLI) | payer BC, SELFPAY ==
[2025-03-25 13:58] VITALS: BP 124/68; PULSE 88
[2025-03-25 14:01] VITALS: RESP 18; TEMP 36.7
[2025-03-25 14:14] VITALS: BP 119/67; PULSE 76
[2025-03-25 14:28] VITALS: BP 108/65; PULSE 82
[2025-03-25 14:43] VITALS: BP 109/64; PULSE 85
[2025-03-25 14:46] LABS: Amnisure Rom* Negative
[2025-03-25 14:59] VITALS: BP 123/72; PULSE 86
[2025-03-25] MEDS: LACTATED RINGERS 1000 ML 1,000 ML IV (15:12)
--- NOTE | 2025-03-25 17:39 | PC.OBNST ---
NST Note NST Note Start: 03/25/25 13:41 Freq: ONCE Status: Active Protocol: Document 03/25/25 17:35 ANABEL (Rec: 03/25/25 17:37 JRLu [id number]) NST Note 2 Para (# of births) 1 EDC 03/28/25 Gestational Age In 39 Weeks & 4 Days Weeks & Days Patient Presented Headache with Complaint(s) of Other Complaints Pt. given IVF which resolved her headache. Reactive Yes Appropriate for Yes Gestational Age SERGIO Davidson RN Date 03/25/25 Reactive Yes Appropriate for Yes Gestational Age SERGIO Mejía RNC Date 03/25/25 OB NST charge Yes Complete NST Note Yes via Write Note The provider's electronic signature indicates the NST is reactive/appropriate for gestational age. *Note to provider: If an addendum is required, open the patient's chart and click on the note under the Nurse/Allied Health tab.
== END 2025-03-25 16:25 | disposition home or self-care (01) ==
LOC: OB OUT 13:37 → OB 13:37
PROVIDERS: PCP Student in an Organized Health Care Education/Training Program; Visit Provider Family Medicine
DX: O26.893 Other specified pregnancy related conditions, third trimester (principal); R51.9 Headache, unspecified; Z3A.39 39 weeks gestation of pregnancy
CPT/HCPCS: 59025; 84112; G0463; J7120

== ENCOUNTER 2025-03-30 04:24 | Outpatient (CLI) | payer BC, SELFPAY ==
[2025-03-30 05:05] VITALS: BP 124/77; PULSE 86
--- NOTE | 2025-03-30 09:04 | PC.OBNST ---
NST Note NST Note Start: 03/30/25 04:30 Freq: ONCE Status: Active Protocol: Document 03/30/25 09:03 [facility] (Rec: 03/30/25 09:04 [facility] [id number]) NST Note 2 Para (# of births) 1 EDC 03/28/25 Gestational Age In 40 Weeks & 2 Days Weeks & Days Patient Presented Contractions/cramping with Complaint(s) of Reactive Yes Appropriate for Yes Gestational Age RN Susi RN Date 03/30/25 Reactive Yes Appropriate for Yes Gestational Age SERGIO Melendrez RN Date 03/30/25 OB NST charge Yes Complete NST Note Yes via Write Note The provider's electronic signature indicates the NST is reactive/appropriate for gestational age. *Note to provider: If an addendum is required, open the patient's chart and click on the note under the Nurse/Allied Health tab.
--- NOTE | 2025-03-30 23:00 | P.NST_ITS ---
NST Note NST Note NST Note: NST Note NST Note Start: 03/30/25 04:30 Freq: ONCE Status: Discharge Protocol: Document 03/30/25 09:03 [facility] (Rec: 03/30/25 09:04 [facility] [id number]) NST Note 2 Para (# of births) 1 EDC 03/28/25 Gestational Age In 40 Weeks & 2 Days Weeks & Days Patient Presented Contractions/cramping with Complaint(s) of Reactive Yes Appropriate for Yes Gestational Age SERGIO Goldman RN Date 03/30/25 Reactive Yes Appropriate for Yes Gestational Age SERGIO Melendrez RN Date 03/30/25 OB NST charge Yes Complete NST Note Yes via Write Note Addendum: FHT: Moderate variability, baseline 130 bpm, accels, no decels. Rafiq every 4-7 minutes.
== END 2025-03-30 09:06 | disposition home or self-care (01) ==
LOC: OB OUT 04:24 → OB 04:25
PROVIDERS: PCP Student in an Organized Health Care Education/Training Program; Visit Provider Student in an Organized Health Care Education/Training Program
DX: O47.1 False labor at or after 37 completed weeks of gestation (principal); Z3A.40 40 weeks gestation of pregnancy
CPT/HCPCS: 59025; G0463

== ENCOUNTER 2025-03-30 23:00 | Inpatient (IN) | payer BC, SELFPAY ==
[2025-03-30 22:02] VITALS: BP 124/74; PULSE 73
--- NOTE | 2025-03-30 23:01 | PM.OBHPLI ---
OB - H&P: HPI Labor/Induction History of Present Illness Date Seen: 03/30/25 Chief Complaint: The patient is a 29 year old 2 para 1 at 40.2 weeks gestation by LMP consistent with 8w US, who presents with spontaneous labor. Contractions started at ~0100. No loss of fluids. Slight worsening of lower extremity edema and headache today. Blood pressures normal. GBS negative. Rh positive. Chief complaint: Maternity Narrative: Fabiola Taylor is a 29 year old female Specific Issues/Plans G2 P 1 Partner: Jarret? H&P completed by Dr Seth on 03/30? # Hx anxiety and depression # Hx chlamydia OB Labs:? Blood type: A+, antibody screen negative.? Hgb (08/14/24): 14.5? Platelets (08/14/24): 228? Rubella: Immune? RPR: non-reactive? HBsAg: negative? HIV: negative? GC/Chlamydia: none in records? Pap (07/17/20): negative? TSH (04/10/24): 0.66 NIPT: low risk?? IMAGING:? 1st trimester: single IUP at 8wks 2 days, fundal PETE 1.6x3.0x0.8? Others: 10/08/24 PETE 2.7x3.4x0.6, remainder unremarkable.? Needs pap PP History of Present Dating criteria: based on LMP care: good care Abnormal ultrasound findings: L choroid plexus cyst, met with perinatology and genetics Medical complications: none Review of Systems Status of ROS: Reports: 10 or more systems reviewed and unremarkable except as noted in History and below Narrative: Denies headache, visual changes, facial edema, epigastric/RUQ pain, N/V, dysuria, or diarrhea. Meds Home Medications and Allergies Home Medications ?Medication ?Instructions ?Recorded ?Confirmed ?Type multivitamin (Multiple Vitamins 1 tab PO QAM 10/16/24 03/30/25 History tablet) metoclopramide HCl 10 mg tablet 10 mg PO Q6H PRN nausea and 10/21/24 03/30/25 Rx (Reglan) vomiting #30 tabs Held on 03/30/25. Instructions: pat ferrous sulfate 325 mg (65 mg 325 mg PO DAILY #90 tabs 01/10/25 03/30/25 Rx iron) tablet Allergies Allergy/AdvReac Type Severity Reaction Status Date / Time topiramate (From Topamax) Allergy Mild Dizziness Verified 03/30/25 04:39 mushrooms Allergy Intermediate Uncoded 10/16/24 08:35 OB - H&P: Exam Physical Exam: Vital signs: Pulse BP 73 124/74 03/30/25 22:02 03/30/25 22:02 Narrative: Gen: alert, oriented, NAD Heart: Regular rate and rhythm, normal S1 and S2, no murmurs/rubs/gallops Lungs: clear to auscultation bilaterally without crackles or wheezes Abd: gravid, nontender, soft to palpation between contractions Ext: warm, dry, without edema bilaterally Vaginal exam: 6 cm / 80 % / -20 / vertex per nursing report Membranes: membranes intact FHT: Baseline: 140 bpm Variability: moderate Acceleration: present Decelerations: absent [place]: Contractions every 4-6 min OB - Problem Based A/P Additional Plan (1) Spontaneous onset of labor: Status: Acute (2) Anemia affecting : Problem details: Hb 11.7 on admission. Status: Acute Delivery/Labor/Induction Plan Plan: expectant management (epidural as desired.)
[2025-03-31] VITALS (45 sets, daily range): BP systolic 104–142; BP diastolic 55–80; PULSE 71–99; RESP 18; TEMP 36.6–37; O2SAT 95–100
[2025-03-31 00:07] LABS: Hematocrit* 36.1 % (33.0-51.0); Hemoglobin* 12.0 gm/dL (12.0-16.0); Immature Granulocytes Abs Auto 0.23 K/uL (0.00-0.30); Immature Granulocytes Pct Auto 2.5 %; Mean Corpuscular HGB Conc 33 gm/dL (32-36); Mean Corpuscular Hemoglobin 32 pg (26-34); Mean Corpuscular Volume 95 fL (80-100); RDW Coefficient of Variation % 14.2 % (11.5-15.5); Red Blood Count* 3.81 m/uL (4.00-5.20); White Blood Count* 9.07 K/uL (4.50-11.00)
[2025-03-31 00:16] LABS: Lymphocytes Absolute Auto 1.40 K/uL (0.90-2.90); Slide Review Reflex No
[2025-03-31] MEDS: LACTATED RINGERS 1000 ML 1,000 ML IV ×2 (01:08→01:57)
--- NOTE | 2025-03-31 01:17 | PM.ANBPRC ---
[facility] Medical History (Updated 03/30/25 @ 23:13 by Nola Seth MD) Hx of chlamydia infection ?Z86.19 - Personal history of other infectious and parasitic diseases (ICD-10) Vaginal delivery ?O80 - Encounter for full-term uncomplicated delivery (ICD-10) Surgical History (Updated 07/17/22 @ 11:04 by Aleisha Mackey MD) History of tonsillectomy and adenoidectomy ?Z90.89 - Acquired absence of other organs (ICD-10) Family History (Updated 10/16/24 @ 09:12 by Julianne Fry CNM) Sister Diabetes Sister Autism Father Kidney disease Brain tumor Maternal Grandmother Thyroid disease Social History (Updated 10/21/24 @ 16:39 by Julianne Fry CNM) Narrative: ? SOCIAL??? Education: bachelors? 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 Special Diet: lactose intolerant?? Ok with a blood transfusion: yes?? Culture or baptism beliefs: denies? RISK FACTORS??? Exercise Times/wk: walk 10-15 min/day?? ANGIE: 2 PHQ 9: 4??? Seat Belt Use: Routinely Smoking: Denies Alcohol/day: Denies while ??? Caffeine: less than 200mg/day?? Drug Use: Denies past/present Plan for feeding baby: breast, struggled last time? What is your current living situation?: I presently have a place to live Problems where you live: no known problems In the past 12 months, utilities in danger of being shut off: no In past 12 months, lack of transportation kept you from medical appts, meetings, work, or getting things needed for daily living: no In the past 12 mos, have been you worried that your food would run out before you had money to buy more?: never true In the past 12 mos, the food you bought just didn't last and you didn't have money to buy more?: never true Smoking Status: Never smoker Do you use any of these nicotine containing products: None How often do you have a drink containing alcohol: never AUDIT-C Alcohol total score: 0 Non-prescribed substance use: denies use How often does anyone, including family, friends and others, physically hurt you: never How often does anyone, including family, friends and others, insult or talk down to you: never How often does anyone, including family, friends and others, threaten you with harm: never How often does anyone, including family, friends and others, scream or curse at you: never Meds Home Medications and Allergies Home Medications ?Medication ?Instructions ?Recorded ?Confirmed ?Type multivitamin (Multiple Vitamins 1 tab PO QAM 10/16/24 03/30/25 History tablet) metoclopramide HCl 10 mg tablet 10 mg PO Q6H PRN nausea and 10/21/24 03/30/25 Rx (Reglan) vomiting #30 tabs Held on 03/30/25. Instructions: pat ferrous sulfate 325 mg (65 mg 325 mg PO DAILY #90 tabs 01/10/25 03/30/25 Rx iron) tablet Allergies Allergy/AdvReac Type Severity Reaction Status Date / Time topiramate (From Topamax) Allergy Mild Dizziness Verified 03/30/25 04:39 mushrooms Allergy Intermediate Uncoded 10/16/24 08:35 Results Labs Labs: Laboratory Results - last 24 hr 03/31/25 00:00 WBC 9.07 RBC 3.81 L Hgb 12.0 Hct 36.1 MCV 95 MCH 32 MCHC 33 RDW Coeff of Liza 14.2 Plt Count 130 L Neut % (Auto) 72.2 H Lymph % (Auto) 15.0 L [place] % (Auto) 9.0 Eos % (Auto) 1.1 Baso % (Auto) 0.2 Neut # (Auto) 6.50 Lymph # (Auto) 1.40 [place] # (Auto) 0.80 Eos # (Auto) 0.10 Baso # (Auto) 0.02 Abs Immat Gran (auto) 0.23 Imm/Tot Granulo (auto) 2.5 Vital Signs Vital Signs: Last Vital Signs Pulse 77 03/31/25 01:15 BP 124/69 03/31/25 01:15 Pulse Ox 100 03/31/25 01:00 Anesthesia Procedures Epidural Insertion Patient Location: OB Start Time: 12:20 Stop Time: 01:18 Start Date: 03/31/25 Stop Date: 03/31/25 Reason for Block: procedure for pain Patient Position: sitting Performed By: Marilin Sanderson Preanesthetic Checklist: IV checked, risks and benefits discussed, monitors and equipment checked, pre-op evaluation, timeout performed and anesthesia consent Prep: chlorhexidine gluconate Monitoring: blood pressure monitoring, continuous pulse oximetry and heart rate Approach: midline Vertebral Space: lumbar (1-5) Epidural Technique: HERMES saline Needle Type: Tuohy needle Injection Technique: continuous catheter Needle gauge: 17 Needle Length (cm): 10 cm Needle Insertion Depth (cm): 6 Catheter Gauge: 19 Catheter Type: multi-orifice Catheter at skin depth (cm): 12 Test Dose Result: negative and lidocaine 1.5% with epinephrine 1 to 200,000
[2025-03-31] MEDS: LIDOCAINE 2% (PF) 5 ML VIAL EPIDURAL (01:21)
[2025-03-31] MEDS: ROPIVACAINE 0.2% 100 ml 100 ML 12 MG EPIDURAL (01:21)
--- NOTE | 2025-03-31 03:59 | PM.OBPNL ---
Subjective Date Seen: 03/31/25 Narrative: Called to bedside for cervical check. SVE remained /-1/asynclitic with head to maternal left. Recommend side lying release to help with repositioning. She is not currently ruptured. Patient and her mother are anxious and nervous about AROM due to family history of prolapsed cord. Declined AROM at this time. Objective Vital Signs: Last Vital Signs Pulse 86 03/31/25 03:45 BP 138/74 03/31/25 03:45 Pulse Ox 100 03/31/25 01:00
--- NOTE | 2025-03-31 04:44 | PM.OBPNL ---
Subjective Date Seen: 03/31/25 Narrative: Patient feeling a sensation of farting or pooping. Called to bedside. Completed side lying release. Objective Exam: SVE: 9 cm, 70-80% effaced, -1, less asynclitic and more centered. Vital Signs: Last Vital Signs Temp 98.2 F 03/31/25 03:53 Pulse 81 03/31/25 04:31 BP 119/69 03/31/25 04:31 Pulse Ox 100 03/31/25 01:00 Plan Plan: - Continue to encourage AROM to expedite delivery. Concern about maternal exhaustion. - Expectant management for now.
[2025-03-31] MEDS: OXYTOCIN 30 unit/500 ML in NS 30 UNIT/500 ML BAG 325 UNIT IVPB (06:15)
[2025-03-31] MEDS: miSOPROStoL 800 MCG/4 TABLET PR (06:17)
[2025-03-31] MEDS: METHYLERGONOVINE MALEATE 0.2 MG/ML INJ IM (06:29)
--- NOTE | 2025-03-31 06:29 | W.PM.VAGDEL1 ---
Procedure Procedure Done: Global Route of delivery: Laceration description: Labial Infant Gender: Female presentation: vertex Placental Delivery Description: Spontaneous Cord Description: 3 Vessels, Nuchal Cord, Loose, Reduced and Around Body x1 OB Vag Delivery Procedures Additional Procedures Procedure Details: FIRST STAGE Patient is a 29 year-old who was admitted at in spontaneous labor. She was dilated to 6 cm upon admission. Labor was not augmented. She became complete at Time: 0525, anterior lip easily reduced with first push. ROM was artificial at time of second stage at 0540. The heart rate tracing was Category 2 for intermittent minimal variability and late decels. SECOND STAGE She pushed effectively. The baby delivered Position: OA. The delivery was uncomplicated. A nuchal cord x1 and body cord x1 was noted at the time of delivery, easily reduced after delivery. The umbilical cord was clamped after 30 seconds. The baby was placed on mother's abdomen. THIRD STAGE The placenta was delivered without difficulty and was noted to be intact and with a three vessel cord on examination. Bleeding was brisk with delivery of placenta. IV Pitocin was started after delivery of the placenta. Due to brisk bleeding, did give both cytotec and methergine. The cervix, vagina and perineum were examined. Significant varicose veins and edema. Small abrasions on labia, one non-bleeding left labial tear, not repaired. The fundus was firm to palpation. The baby stayed in room with mother. The mother stayed in the delivery room. Sponge, lap, and needle counts were correct at the end of the procedure.
[2025-03-31] MEDS: IBUPROFEN 600 MG TABLET PO (08:26)
--- NOTE | 2025-03-31 10:50 | PM.ANPOST ---
Post Anesthesia Note Post Anesthesia Note Patient seen: Inpatient Respiratory Status: adequate Cardiovascular Status: adequate Mental Status: baseline Pain: adequate Temp: baseline Anesthetic awareness: N/A Complications: none Follow care: none
[2025-03-31] MEDS: ACETAMINOPHEN 500 MG TABLET 1000 MG PO (12:42)
[2025-03-31] MEDS: DOCUSATE SODIUM 100 MG CAPSULE PO (12:42)
[2025-04-01 00:49] VITALS: BP 138/80; PULSE 76; RESP 17; TEMP 36.5; O2SAT 97
[2025-04-01 03:00] VITALS: BP 143/79; PULSE 76; RESP 16; TEMP 36.4; O2SAT 99
[2025-04-01 03:20] VITALS: BP 127/73
[2025-04-01 07:17] LABS: Hemoglobin* 11.2 gm/dL (12.0-16.0)
[2025-04-01 08:00] VITALS: BP 122/81; PULSE 67; RESP 18; TEMP 36.6; O2SAT 95
[2025-04-01] MEDS: ACETAMINOPHEN 500 MG TABLET 1000 MG PO (08:59)
[2025-04-01] MEDS: DOCUSATE SODIUM 100 MG CAPSULE PO (09:00)
[2025-04-01] MEDS: IBUPROFEN 600 MG TABLET PO (10:24)
--- NOTE | 2025-04-01 12:36 | P.DS_ITS ---
DS: Providers Provider Date Seen: 04/01/25 Date of admission: 03/30/25 23:00 Primary care physician: Rosibel Carvalho MD Admitting Clinician: Nola Seth MD Attending Physician on discharge: Nola Seth MD Date of Discharge: 04/01/25 DS: Diagnosis Discharge Diagnosis (1) Vaginal delivery: Status: Acute (2) Anemia affecting : Status: Acute Problem details: Hb 11.7 on admission. (3) Anxiety and depression: Status: Acute Exam Narrative: Exam Narrative: Patient assessed in bed. Const: Vital Signs, click to edit/add: Vital Signs - 24 hr 03/31/25 16:38 03/31/25 20:17 04/01/25 00:49 Temperature 98.6 F 97.8 F 97.7 F Pulse Rate [Left P ulse Oximeter] 73 73 76 Respiratory Rate 18 18 17 Blood Pressure [Le ft Arm] 126/74 124/76 138/80 Pulse Oximetry 95 96 97 Oxygen Delivery Me thod Room Air Room Air Room Air 04/01/25 03:00 04/01/25 03:20 04/01/25 08:00 Temperature 97.6 F 97.8 F Pulse Rate [Left P ulse Oximeter] 76 67 Respiratory Rate 16 18 Blood Pressure [Le ft Arm] 143/79 H 127/73 122/81 Pulse Oximetry 99 95 Oxygen Delivery Me thod Room Air Room Air Documenting provider has reviewed patient's vital signs: yes Common normals: no apparent distress General appearance: comfortable Orientation/consciousness: Yes awake HENMT: Common normals: normocephalic and moist oral mucous membranes Head and scalp: normocephalic Chest: Other: breast not engorged, unable to hand express much colostrum Resp: Common normals: normal respiratory effort Extremity: Other: 1+ bilateral lower extremity edema to kn ees Neuro: Sensorium/orientation: awake Psych: Mood and affect: anxious Skin: Common normals: no rashes or lesions noted General skin exam: no rashes or lesions noted OB - DS: Summary Hospital Course Hospital Course: The patient is a 29 year old G2 P 2 at 40 weeks gestation that was admitted to the Center on 03/30/25 for spontaneous onset of labor. She had an uncomplicated delivery. She delivered a viable female . Her and hospital course are remarkable for the following: - concerns: difficulty with supply after delivery. Education of techniques. Ultimately supplemented with formula due to patient concerns of not getting enough. Discussed protecting supply with pumping if she chooses to supplement feeds. Recommended outpatient consult, center to assist with scheduling. - anxiety, depression, h/o depression: RNs and providers concerned about anxiety, patient voiced that she feels her mood is stable compared to prior and period. Discussed restarting SSRI given h/o depression, patient declined initiation in the hospital and prefers to follow up at or visit with PCP. Discussed risk of reoccurrence of depression with patient and partner. - elevated blood pressure reading: patient had single elevated blood pressure to 143/79 on PPD#0. This was nonsustained. Patient was asymptomatic. Patient has been edematous for the last few weeks of , but otherwise denies s/s of preE. Peripartum Data delivery method: Vaginal Laceration description: None Procedures: AROM complications: none Infant Gender: Female Time Spent with Patient Time attestation: Total time spent providing and/or coordinating discharge services: Time spent: Greater than 30 minutes Discharge Plan Discharge Disposition: Home, Self-Care Date of Admission: 03/30/25 23:00 Attending Provider on Discharge: Rosibel Carvalho Primary Care Provider: Rosibel Carvalho Condition: Stable Anticipated Discharge Date/Time: 04/01/25 12:49 Discharge Medications: Continued multivitamin [Multiple Vitamins] Tablet 1 tab PO QAM metoclopramide HCl [Reglan] 10 mg tablet 10 mg PO Q6H PRN (Reason: nausea and vomiting) Qty: 30 0RF Rx Instructions: Take 1 tablets with Tylenol for headaches. ferrous sulfate 325 mg (65 mg iron) tablet 325 mg PO DAILY Qty: 90 1RF Discharge Orders: Discharge Order (Routine); Ordered 04/01/25 Ordered By: Rosibel Carvalho Patient Education: Vaginal Delivery (GEN) Activity Level: Activity as Tolerated Discharge Diet: Regular Follow Up Appointments: Rosibel Carvalho M.D. [Primary Care Provider, Family Practice] Forms: [facility] Info Instructions
== END 2025-04-01 15:27 | disposition home or self-care (01) | DRG 560 ==
LOC: OB OUT 03-31 00:12 → OB 03-31 00:12
PROVIDERS: Admitting Provider Student in an Organized Health Care Education/Training Program; PCP Family Medicine; Visit Provider Student in an Organized Health Care Education/Training Program
DX: O99.02 Anemia complicating childbirth (principal); D64.9 Anemia, unspecified; O87.8 Other venous complications in the puerperium; O99.344 Other mental disorders complicating childbirth; F41.9 Anxiety disorder, unspecified; F32.A Depression, unspecified; Z3A.40 40 weeks gestation of pregnancy; Z37.0 Single live birth
CPT/HCPCS: 01967; 36415; 59025; 85018; 85025; 86592; 86850; 86900; 86901; 99199; G0463; A9270; J2210; J2795; J7120

== ENCOUNTER 2025-04-05 12:01 | Inpatient (IN) | payer BC, SELFPAY ==
[2025-04-05] VITALS (19 sets, daily range): BP systolic 132–158; BP diastolic 64–91; PULSE 49–69; RESP 15–25; TEMP 36.5–36.9; O2SAT 95–100
[2025-04-05] MEDS: ACETAMINOPHEN 500 MG TABLET 1000 MG PO ×2 (10:46→17:04)
[2025-04-05 10:55] LABS: Hematocrit* 33.4 % (33.0-51.0); Hemoglobin* 11.1 gm/dL (12.0-16.0); Mean Corpuscular HGB Conc 33 gm/dL (32-36); Mean Corpuscular Hemoglobin 32 pg (26-34); Mean Corpuscular Volume 96 fL (80-100); Red Blood Count* 3.49 m/uL (4.00-5.20); White Blood Count* 6.37 K/uL (4.50-11.00)
[2025-04-05 11:03] LABS: Slide Review Reflex No
[2025-04-05] MEDS: LABETALOL HCL 100 MG TABLET PO (11:03)
[2025-04-05 11:10] LABS: Alanine Aminotransferase* 131 U/L (4-35); Aspartate Amino Transferase* 75 U/L (12-35); Blood Urea Nitrogen* 8 mg/dL (5-24); Creatinine* 0.5 mg/dL (0.5-1.5); Estimated Glomerular Filt Rate 130 ml/min
--- NOTE | 2025-04-05 11:32 | P.OBHP_ITS ---
OB - H&P: HPI Labor/Induction History of Present Illness Time Seen by Provider: 11:32 Date Seen: 04/05/25 Chief Complaint: The patient is a 29 year old 2 para 2 now day 5 from [facility], who presents with headache, elevated blood pressure and elevated LFTs at clinic visit 04/04. Chief complaint: Maternity : 2 Para: 2 Narrative: Fabiola Taylor is a 29 year old female G2 now P2 who is day 5 from [facility]. Her was complicated by anxiety and anemia. She had an uncomplicated vaginal delivery and unremarkable hospital stay, was discharged on 04/01/25. She reports onset of visual changes on the evening 04/03. She was rocking her son to sleep when she noticed black dots in her vision. This resolved when she laid down. On 04/04, noticed burning with urination. She was evaluated at the [facility], where she was found to have blood pressure elevated to 149/91. Preeclampsia labs were drawn, and she was prescribed labetalol 100 mg b.i.d. Her urine showed blood and leuk esterase, she is prescribed cephalexin for possible UTI. On the morning of admission, she contacted the center with concerns about her lab results; AST 50, ALT 76 creatinine 0.49, platelets 176, hemoglobin 11.0. She also endorsed severe headache starting overnight on 04/04 as well as epigastric pain and moderate lower extremity swelling. She was counseled to come immediately to the center. Upon arrival at the center, her blood pressure was 146/81, and has remained persistently elevated in the non severe range. Has been taking her labetalol and cephalexin as prescribed. Ongoing headache and epigastric pain. Endorses some chest pressure when she lays flat. Dysuria has resolved. Normal bowel movements. She has been eating and drinking normally. No vomiting, several episodes of diarrhea yesterday. Lochia has been mild. She is not currently . Here, AST 75, ALT 131, creatinine 0.5, platelets 167. Specific Issues/Plans G2 P 1 Partner: Jarret? H&P completed by Dr Seth on 03/30? # Hx anxiety and depression # Hx chlamydia OB Labs:? Blood type: A+, antibody screen negative.? Hgb (08/14/24): 14.5? Platelets (08/14/24): 228? Rubella: Immune? RPR: non-reactive? HBsAg: negative? HIV: negative? GC/Chlamydia: none in records? Pap (07/17/20): negative? TSH (04/10/24): 0.66 NIPT: low risk?? IMAGING:? 1st trimester: single IUP at 8wks 2 days, fundal PETE 1.6x3.0x0.8? Others: 10/08/24 PETE 2.7x3.4x0.6, remainder unremarkable.? Needs pap PP Review of Systems Status of ROS: Reports: 10 or more systems reviewed and unremarkable except as noted in History and below Meds Home Medications and Allergies Home Medications ?Medication ?Instructions ?Recorded ?Confirmed ?Type multivitamin (Multiple Vitamins 1 tab PO QAM 10/16/24 03/30/25 History tablet) metoclopramide HCl 10 mg tablet 10 mg PO Q6H PRN nause a and 10/21/24 03/30/25 Rx (Reglan) vomiting #30 tabs ferrous sulfate 325 mg (65 mg 325 mg PO DAILY #90 tabs 01/10/25 03/30/25 Rx iron) tablet Allergies Allergy/AdvReac Type Severity Reaction Status Date / Time topiramate (From Topamax) Allergy Mild Dizziness Verified 03/30/25 04:39 mushrooms Allergy Intermediate Uncoded 10/16/24 08:35 OB - H&P: Exam Physical Exam: Vital signs: Pulse BP 51 L 158/82 H 04/05/25 11:27 04/05/25 11:27 Narrative: General appearance: Well-appearing adult female. Alert, oriented and appropriate. Lying back in hospital bed. HEENT: EOMI, no conjunctival injection or discharge. MMM. Neck: Supple. CV: RRR, 2/6 systolic murmur, no rubs or extra heart sounds. Pulm: CTAB, no wheezes, rales or rhonchi. Abdomen: Soft. Epigastric tenderness to palpation. No right upper quadrant tenderness. No guarding or rebound. Fundus palpated 2 cm below the umbilicus. MSK: Moving all extremities. Ext: Warm and well-perfused. Trace lower extremity edema bilaterally Skin: No rashes appreciated over exposed skin. Neuro: Grossly normal strength and sensation. Patellar reflexes brisk and symmetric. No clonus. No ankle clonus. Psych: Normal affect. OB - Results Labs Labs: Short CBC 04/05/25 Range/Units 10:48 WBC 6.37 (4.50-11.00) K/uL Hgb 11.1 L (12.0-16.0) gm/dL Hct 33.4 (33.0-51.0) % Plt Count 167 (140-440) K/uL BMP 04/05/25 10:48 BUN 8 Creatinine 0.5 Liver Function 04/05/25 Range/Units 10:48 AST 75 H (12-35) U/L ALT 131 H (4-35) U/L OB - Problem Based A/P Additional Plan (1) Pre-eclampsia, severe, condition: Problem details: [place], visual changes, edema. 04/04 clinic visit with BP 149/91, AST 50, ALT 76. Started labetalol 100 mg BID. On admission, BP 158/82, AST 75, ALT 131. Status: Acute Plan: - Meeting criteria for pre-eclampsia with severe features d/t LFT 2x ULN and severe ARMSTRONG. - Initiate IV magnesium per protocol x 24 hours - Started PO labetalol 100 mg BID 04/04. Given additional dose PO labetalol 100 mg on arrival. Continue 200 mg BID. Low threshold to increase to keep BP <140/90 - Treat severe range pressures as indicated - Repeat labs Q6 hours - Monitor I/O - Frequent vitals per protocol - Consult [employer], Dr. Smith, d/t pre-eclampsia with severe features
[2025-04-05] MEDS: LACTATED RINGERS 1000 ML 1,000 ML 75 ML IV (12:13)
[2025-04-05] MEDS: MAGNESIUM IV 4 GM/100 ML PIGGYBACK IVPB (12:14)
[2025-04-05] MEDS: MAGNESIUM Infusion 40 GM/1,000 ML IV.SOLN IVPB (12:49)
--- NOTE | 2025-04-05 13:30 | CRLHL7_ITS ---
For Patients: As a result of the Century Cures Act, medical imaging exams and procedure reports are released immediately into your electronic medical record. You may view this report before your referring provider. If you have questions, please contact your health care provider. INDICATION: Preeclampsia, possible pulmonary edema TECHNIQUE: Chest 2 views. COMPARISON: None. FINDINGS: Cardiovascular and mediastinum: Heart size is normal. Unremarkable mediastinum. Prominent pulmonary vasculature in the right lung base Lungs and pleural spaces: Lungs are clear. No consolidative opacity. Possible mild reticulation in the bilateral lung bases. No pleural effusion. No pneumothorax. Bones and soft tissues: No significant findings. IMPRESSION: Prominent pulmonary vasculature in the right lung base could suggest pulmonary venous congestion. Possible mild pulmonary edema. Dictated by Emily Padilla MD @ 04/05/2025 2:58:57 PM (Electronically Signed)
--- NOTE | 2025-04-05 13:45 | PM.OBCN1 ---
OB - CN: HPI Date of Consult Date Seen: 04/05/25 Patient: [facility] Patient Consult date: 04/05/25 Requesting Physician: Aleisha Mackey MD Primary Care Provider: Rosaura Oates MD Consult Narrative Narrative: The patient is a 29 year old G 2 P 2 readmitted on PPD5 for preE with SF. She is s/p uncomplicated on 03/31. She is a patient of [facility], please see Dr. Mackey's admission note for details. Ob consult was requested given preE with SF. Patient was not personally seen, information gathered from speaking with Dr. Mackey and chart review. Fabiola was seen yesterday in clinic for dysuria, where she was noted to have mild range BP. She endorsed headache, vision changes and epigastric pain. PreE labs were obtained but did not result until overnight. Patient called today noting severe rage transaminitis (ALT 76), was recommended to present to triage. In triage, BP was persistently in the mild range despite labetolol 100mg BID starting yesterday. Repeat preE labs today: AST 75, ALT 131, creatinine 0.5, platelets 167. Patient notes continued headache and epigastric pain. No vision changes or RUQ pain. She has some chest pressure when lying flat, but no dyspnea or chest pain. Per Dr. Mackey, lungs are clear and patient is satting 99% on room air. Labetolol was increased to 200mg BID. Patient was admitted and started on magensium sulfate for seizure prophylaxis. History History 2 Elective abortions Para 2 Spontaneous abortions Hx # Term Pregnancies Ectopic pregnancies Hx # Pregnancies Multiple births Number of Living Children 0 Past Pregnancies Del. 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, LEAD RUBY ON RAILS DEVELOPER Waterbirth PFSH PFSH Medical History (Updated 04/05/25 @ 12:00 by Aleisha Mackey MD) Hx of chlamydia infection ?Z86.19 - Personal history of other infectious and parasitic diseases (ICD-10) Vaginal delivery ?O80 - Encounter for full-term uncomplicated delivery (ICD-10) Surgical History (Updated 04/02/25 @ 00:01 by Chava Del Cid) History of tonsillectomy and adenoidectomy ?Z90.89 - Acquired absence of other organs (ICD-10) Family History (Updated 10/16/24 @ 09:12 by Julianne Fry CNM) Sister Diabetes Sister Autism Father Kidney disease Brain tumor Maternal Grandmother Thyroid disease Social History (Updated 10/21/24 @ 16:39 by Julianne Fry CNM) Narrative: ? SOCIAL??? Education: bachelors? 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 Special Diet: lactose intolerant?? Ok with a blood transfusion: yes?? Culture or mormonism beliefs: denies? RISK FACTORS??? Exercise Times/wk: walk 10-15 min/day?? ANGIE: 2 PHQ 9: 4??? Seat Belt Use: Routinely Smoking: Denies Alcohol/day: Denies while ??? Caffeine: less than 200mg/day?? Drug Use: Denies past/present Plan for feeding baby: breast, struggled last time? What is your current living situation?: I presently have a place to live Problems where you live: no known problems In the past 12 months, utilities in danger of being shut off: no In past 12 months, lack of transportation kept you from medical appts, meetings, work, or getting things needed for daily living: no In the past 12 mos, have been you worried that your food would run out before you had money to buy more?: never true In the past 12 mos, the food you bought just didn't last and you didn't have money to buy more?: never true Smoking Status: Never smoker Do you use any of these nicotine containing products: None How often do you have a drink containing alcohol: never AUDIT-C Alcohol total score: 0 Non-prescribed substance use: denies use How often does anyone, including family, friends and others, physically hurt you: never How often does anyone, including family, friends and others, insult or talk down to you: never How often does anyone, including family, friends and others, threaten you with harm: never How often does anyone, including family, friends and others, scream or curse at you: never Meds Home Medications and Allergies Home Medications ?Medication ?Instructions ?Recorded ?Confirmed ?Type multivitamin (Multiple Vitamins 1 tab PO QAM 10/16/24 03/30/25 History tablet) metoclopramide HCl 10 mg tablet 10 mg PO Q6H PRN nausea and 10/21/24 03/30/25 Rx (Reglan) vomiting #30 tabs ferrous sulfate 325 mg (65 mg 325 mg PO DAILY #90 tabs 01/10/25 03/30/25 Rx iron) tablet Allergies Allergy/AdvReac Type Severity Reaction Status Date / Time topiramate (From Topamax) Allergy Mild Dizziness Verified 03/30/25 04:39 mushrooms Allergy Intermediate Uncoded 10/16/24 08:35 OB - H&P: Exam Physical Exam: Vital signs: Temp Pulse Resp BP Pulse Ox O2 Del Method 97.8 F 62 20 137/80 99 Room Air 04/05/25 13:00 04/05/25 13:15 04/05/25 13:15 04/05/25 13:15 04/05/25 13:15 04/05/25 13:00 Narrative: BP: 132 - 156 systolic, 76-91 diastolic. BP has improved since increased labetolol dose to 200mg BID, normotensive on last 2 checks. UOP 500cc since admission Patient was not examined by me. See physical exam by Dr. Mackey. OB - Results Labs Labs: Short CBC 04/05/25 Range/Units 10:48 WBC 6.37 (4.50-11.00) K/uL Hgb 11.1 L (12.0-16.0) gm/dL Hct 33.4 (33.0-51.0) % Plt Count 167 (140-440) K/uL BMP 04/05/25 10:48 BUN 8 Creatinine 0.5 Liver Function 04/05/25 Range/Units 10:48 AST 75 H (12-35) U/L ALT 131 H (4-35) U/L OB - CN: A/P Assessment and Plan (1) Pre-eclampsia, severe, condition: Problem details: ARMSTRONG, visual changes, edema. 04/04 clinic visit with BP 149/91, AST 50, ALT 76. Started labetalol 100 mg BID. On admission, BP 158/82, AST 75, ALT 131. Status: Acute Plan Fabiola is a 29 year old G 2 P 2 readmitted on PPD5 for preE with SF. She is a patient of [facility], please see Dr. Mackey's admission note for details. Ob consult was requested given preE with SF. Patient was not personally seen, information gathered from speaking with Dr. Mackey and chart review. Agree with diagnosis of preE with SF given new BP elevation, severe range transaminitis and persistent headache. - s/p magnesium sulfate 4g bolus, continue 2g/hour x 24 hours - Recommend headache treatment with ibuprofen/tylenol initially, further medication management as needed - Diligent BP monitoring ongoing. Long acting antihypertensive regimen: 200mg labetolol BID. Recommend titration to goal of most values <140/90mmHg. - Plan to treat and sustained SRBP as needed. - Serial preE labs (CBC, Cr, AST and ALT) with mag levels q6h while on magnesium - Diligent I/O monitoring - Recommend CXR to rule out pulmonary edema in the setting of chest discomfort though per Dr. Mackey her cardiopulmonary exam is benign and she is satting 96-100% on RA. - Recommend inpatient monitoring for at least 24 hours after completing magnesium course Care to be continued by [facility]. Ob consultation available if questions/concerns arise.
[2025-04-05] MEDS: FUROSEMIDE 10 MG/ML inj 20 MG IVP (16:16)
[2025-04-05 17:07] LABS: Hematocrit* 35.9 % (33.0-51.0); Hemoglobin* 12.0 gm/dL (12.0-16.0); Mean Corpuscular HGB Conc 33 gm/dL (32-36); Mean Corpuscular Hemoglobin 32 pg (26-34); Mean Corpuscular Volume 95 fL (80-100); Red Blood Count* 3.77 m/uL (4.00-5.20); White Blood Count* 7.15 K/uL (4.50-11.00)
[2025-04-05 17:12] LABS: Slide Review Reflex No
[2025-04-05 17:23] LABS: Alanine Aminotransferase* 170 U/L (4-35); Aspartate Amino Transferase* 90 U/L (12-35); Blood Urea Nitrogen* 7 mg/dL (5-24); Creatinine* 0.5 mg/dL (0.5-1.5); Estimated Glomerular Filt Rate 130 ml/min
[2025-04-05] MEDS: LABETALOL HCL 100 MG TABLET 200 MG PO (21:02)
[2025-04-05] MEDS: IBUPROFEN 600 MG TABLET PO (23:25)
[2025-04-05 23:48] LABS: Hematocrit* 36.3 % (33.0-51.0); Hemoglobin* 11.8 gm/dL (12.0-16.0); Mean Corpuscular HGB Conc 33 gm/dL (32-36); Mean Corpuscular Hemoglobin 31 pg (26-34); Mean Corpuscular Volume 96 fL (80-100); Red Blood Count* 3.77 m/uL (4.00-5.20); White Blood Count* 7.57 K/uL (4.50-11.00)
[2025-04-05 23:54] LABS: Slide Review Reflex No
[2025-04-06] VITALS (9 sets, daily range): BP systolic 121–148; BP diastolic 73–92; PULSE 62–74; RESP 14–17; TEMP 36.4–36.7; O2SAT 94–98
[2025-04-06 00:03] LABS: Alanine Aminotransferase* 168 U/L (4-35); Aspartate Amino Transferase* 82 U/L (12-35); Blood Urea Nitrogen* 6 mg/dL (5-24); Creatinine* 0.5 mg/dL (0.5-1.5); Estimated Glomerular Filt Rate 130 ml/min
[2025-04-06] MEDS: LACTATED RINGERS 1000 ML 1,000 ML 75 ML IV (01:41)
[2025-04-06 05:09] LABS: Hematocrit* 34.6 % (33.0-51.0); Hemoglobin* 11.5 gm/dL (12.0-16.0); Mean Corpuscular HGB Conc 33 gm/dL (32-36); Mean Corpuscular Hemoglobin 32 pg (26-34); Mean Corpuscular Volume 96 fL (80-100); Red Blood Count* 3.62 m/uL (4.00-5.20); White Blood Count* 6.14 K/uL (4.50-11.00)
[2025-04-06 05:10] LABS: Slide Review Reflex No
[2025-04-06] MEDS: DOCUSATE SODIUM 100 MG CAPSULE PO (05:31)
[2025-04-06 06:28] LABS: Alanine Aminotransferase* 156 U/L (4-35); Aspartate Amino Transferase* 75 U/L (12-35); Blood Urea Nitrogen* 5 mg/dL (5-24); Creatinine* 0.5 mg/dL (0.5-1.5); Estimated Glomerular Filt Rate 130 ml/min
[2025-04-06] MEDS: MAGNESIUM Infusion 40 GM/1,000 ML IV.SOLN IVPB (06:47)
--- NOTE | 2025-04-06 08:00 | CRLHL7_ITS ---
For Patients: As a result of the Century Cures Act, medical imaging exams and procedure reports are released immediately into your electronic medical record. You may view this report before your referring provider. If you have questions, please contact your health care provider. INDICATION: Pulmonary congestion TECHNIQUE: Chest 2 views. COMPARISON: 04/05/2025 FINDINGS: Cardiovascular and mediastinum: Heart size is normal. Unremarkable mediastinum. Minimally decreased prominence of the pulmonary vasculature in the right lung base Lungs and pleural spaces: Lungs are clear. No consolidative or interstitial opacity. No pleural effusion. No pneumothorax. Bones and soft tissues: No significant findings. IMPRESSION: Mild pulmonary vascular congestion is minimally improved compared to prior day radiograph. Dictated by Emily Padilla MD @ 04/06/2025 8:11:10 AM (Electronically Signed)
--- NOTE | 2025-04-06 09:25 | PM.GYNPNNOR ---
Progress Note: A&P Assessment and plan (1) Pre-eclampsia, severe, condition: Problem details: ARMSTRONG, visual changes, edema. 04/04 clinic visit with BP 149/91, AST 50, ALT 76. Started labetalol 100 mg BID as outpatient. On admission, BP 158/82, AST 75, ALT 131. Status: Acute Assessment and Plan: - Meeting criteria for pre-eclampsia with severe features d/t LFT 2x ULN and severe ARMSTRONG. - Initiate IV magnesium per protocol x 24 hours, 12:15 today - Blood pressures at goal overnight with labetalol 200 mg BID, however bradycardia present. Transition to nifedipine XL 30 mg QD this AM. Titrate dose as needed to maintain BPs <140/90. - Treat severe range pressures as indicated - Repeat labs Q6 hours while on magnesium - Monitor I/O. Nearly 6L net negative this AM - Frequent vitals per protocol - STAIN SPRAYER, Dr. Smith, consulted d/t pre-eclampsia with severe features (2) Pulmonary edema: Problem details: Subjective chest pressure on admission. Chest x-ray with mild pulmonary edema. Normal oxygenation and WOB. Status: Acute Assessment and Plan: - S/p IV lasix 20 mg x1 dose. Despite significant diuresis, her CXR is unchanged today, and continues to have 2+ pitting edema of LE. - Will give an additional 20 mg IV lasix this AM - Fluid restriction, 2L in 24H. Can be liberalized once magnesium is off. 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 Culture no growth on 04/06. Status: Acute Assessment and Plan: - Stop keflex SECONDARY EDUCATION PROFESSOR- PN:Subj Non-OR Subjective Time Seen by Provider: 09:25 Date Seen: 04/06/25 Interval history: Yesterday chest x-ray showed mild pulmonary edema. Patient was given 20 mg IV Lasix. This AM she is 5800 mL net negative since admission. Stable respiratory status and normal oxygenation overnight. Chest x-ray this morning unchanged. Blood pressures had been at goal until this a.m. just before her scheduled dose of labetalol, 148/92. Patient states she is feeling better this morning. Feels ?senior planner.? Headache remains present, but has improved, especially with ibuprofen. Epigastric pain has improved. She has been urinating frequently. Denies new symptoms. Family decided to keep the at home. She has pumped once, and states her breasts do not feel full this morning. SECONDARY EDUCATION PROFESSOR-PN: Obj Exam Physical Exam: Vital signs: Temp Pulse Resp BP Pulse Ox O2 Del Method 97.6 F 68 16 148/92 H 94 Room Air 04/06/25 07:30 04/06/25 07:30 04/06/25 07:30 04/06/25 07:30 04/06/25 07:30 04/06/25 07:30 Narrative: General appearance: Well-appearing adult female. Alert, oriented and appropriate. Sitting up in hospital bed. HEENT: EOMI, no conjunctival injection or discharge. MMM. Neck: Supple. CV: RRR. 2/6 systolic murmur. No rubs or extra heart sounds. Pulm: CTAB, no wheezes, rales or rhonchi. Abdomen: Soft, non-tender. Fundus palpated 2 cm below the umbilicus. MSK: Moving all extremities. Ext: Warm and well-perfused. 2+ edema over the dorsal feet, trace at the ankles and lower legs. Skin: No rashes appreciated over exposed skin. Neuro: Grossly normal strength and sensation. No focal deficits. Psych: Normal affect. SECONDARY EDUCATION PROFESSOR - PN: Obj Data Labs Labs: Laboratory Results - last 24 hr 04/05/25 04/05/25 04/05/25 10:48 17:02 22:57 WBC 6.37 7.15 7.57 RBC 3.49 L 3.77 L 3.77 L Hgb 11.1 L 12.0 11.8 L Hct 33.4 35.9 36.3 MCV 96 95 96 MCH 32 32 31 MCHC 33 33 33 Plt Count 167 188 207 BUN 8 7 6 Creatinine 0.5 0.5 0.5 Estimated GFR 130 130 130 Magnesium 3.8 H AST 75 H 90 H 82 H ALT 131 H 170 H 168 H 04/06/25 05:02 WBC 6.14 RBC 3.62 L Hgb 11.5 L Hct 34.6 MCV 96 MCH 32 MCHC 33 Plt Count 190 BUN 5 Creatinine 0.5 Estimated GFR 130 Magnesium AST 75 H ALT 156 H
[2025-04-06] MEDS: FUROSEMIDE 10 MG/ML inj 20 MG IVP (09:45)
[2025-04-06 10:55] LABS: Hematocrit* 41.4 % (33.0-51.0); Hemoglobin* 13.6 gm/dL (12.0-16.0); Mean Corpuscular HGB Conc 33 gm/dL (32-36); Mean Corpuscular Hemoglobin 32 pg (26-34); Mean Corpuscular Volume 96 fL (80-100); Red Blood Count* 4.30 m/uL (4.00-5.20); White Blood Count* 6.34 K/uL (4.50-11.00)
[2025-04-06 10:56] LABS: Slide Review Reflex No
[2025-04-06 11:07] LABS: Chloride* 97 mmol/L (96-114); Sodium* 138 mmol/L (135-149)
[2025-04-06 11:10] LABS: Alanine Aminotransferase* 203 U/L (4-35); Anion Gap 12 mEq/L (7-15); Aspartate Amino Transferase* 87 U/L (12-35); Blood Urea Nitrogen* 6 mg/dL (5-24); Calcium* 8.0 mg/dL (8.4-10.6); Carbon Dioxide* 29 mmol/L (20-32); Creatinine* 0.7 mg/dL (0.5-1.5); Estimated Glomerular Filt Rate 120 ml/min; Glucose* 91 mg/dL (60-115)
[2025-04-06 11:20] LABS: Potassium* 3.0 mmol/L (3.6-5.1)
[2025-04-06] MEDS: POTASSIUM CHLORIDE 10 MEQ CAPSULE ER 20 MEQ PO ×2 (13:41→20:46)
[2025-04-06] MEDS: IBUPROFEN 600 MG TABLET PO (14:14)
[2025-04-06 17:13] LABS: Hematocrit* 38.4 % (33.0-51.0); Hemoglobin* 12.6 gm/dL (12.0-16.0); Mean Corpuscular HGB Conc 33 gm/dL (32-36); Mean Corpuscular Hemoglobin 31 pg (26-34); Mean Corpuscular Volume 95 fL (80-100); Red Blood Count* 4.03 m/uL (4.00-5.20); White Blood Count* 6.21 K/uL (4.50-11.00)
[2025-04-06 17:22] LABS: Slide Review Reflex No
[2025-04-06 17:25] LABS: Albumin* 3.7 g/dL (3.3-5.0)
[2025-04-06 17:28] LABS: Alanine Aminotransferase* 156 U/L (4-35); Alkaline Phosphatase* 156 U/L (40-150); Aspartate Amino Transferase* 61 U/L (12-35); Bilirubin Direct* 0.2 mg/dL (0.0-0.5); Bilirubin Total* 0.5 mg/dL (0.1-1.5); Blood Urea Nitrogen* 10 mg/dL (5-24); Total Protein* 6.2 g/dL (6.0-8.3)
[2025-04-07] VITALS (10 sets, daily range): BP systolic 116–151; BP diastolic 70–95; PULSE 55–92; RESP 16–20; TEMP 36.5–36.9; O2SAT 95–100
[2025-04-07] MEDS: IBUPROFEN 600 MG TABLET PO ×2 (02:40→12:23)
--- NOTE | 2025-04-07 04:27 | PC.NURSE ---
pt called this nurse in to report that her chest felt hot and tingling. This underwriter put pulse oxy probe on finger and reading was 97-100% on RA. Asked pt to describe the feeling in her chest more and she said it felt hot, pressure and hard to breath. Lungs were listened to and they were clear bilaterally. Pt request to blood pressure checked as she was giving and additional dose of Nifedipine. Pt had a fan in her room and this underwriter brought closer to her and she said it helped. After blood pressure was checked she said the pain was starting to go away. Will update MD when out of deliver.
[2025-04-07 07:04] LABS: Hematocrit* 42.0 % (33.0-51.0); Hemoglobin* 13.8 gm/dL (12.0-16.0); Mean Corpuscular HGB Conc 33 gm/dL (32-36); Mean Corpuscular Hemoglobin 31 pg (26-34); Mean Corpuscular Volume 96 fL (80-100); Red Blood Count* 4.40 m/uL (4.00-5.20); White Blood Count* 6.34 K/uL (4.50-11.00)
[2025-04-07 07:18] LABS: Potassium* 3.5 mmol/L (3.6-5.1)
[2025-04-07 07:21] LABS: Alanine Aminotransferase* 134 U/L (4-35); Blood Urea Nitrogen* 8 mg/dL (5-24); Creatinine* 0.5 mg/dL (0.5-1.5); Estimated Glomerular Filt Rate 130 ml/min
[2025-04-07 07:25] LABS: Slide Review Reflex No
[2025-04-07] MEDS: POTASSIUM CHLORIDE 10 MEQ CAPSULE ER 20 MEQ PO (08:30)
[2025-04-07] MEDS: ACETAMINOPHEN 500 MG TABLET 1000 MG PO (08:32)
[2025-04-07 08:38] LABS: Aspartate Amino Transferase* 45 U/L (12-35)
--- NOTE | 2025-04-07 09:53 | P.DS_ITS ---
DS: Providers Provider Date Seen: 04/07/25 Date of admission: 04/05/25 12:01 Primary care physician: Rosaura Oates MD Admitting Clinician: Aleisha Mackey MD Consults: 04/05/25 12:39 Consult to Physician [CONS] Routine Comment: Consulting Provider: Zehra Smith Has provider been notified: Yes Attending Physician on discharge: Adriana Leigh DO Date of Discharge: 04/07/25 DS: Diagnosis Discharge Diagnosis (1) Pre-eclampsia, severe, condition: Status: Acute Problem details: ARMSTRONG, visual changes, edema. 04/04 clinic visit with BP 149/91, AST 50, ALT 76. Started labetalol 100 mg BID as outpatient. On admission, BP 158/82, AST 75, ALT 131. (2) Pulmonary edema: Status: Acute Problem details: Subjective chest pressure on admission. Chest x-ray with mild pulmonary edema. Normal oxygenation and WOB. 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 Culture no growth on 04/06. Discharge Plan Discharge Disposition: Home, Self-Care Date of Admission: 04/05/25 12:01 Attending Provider on Discharge: Adriana Leigh Consulting Providers: Zehra Smith Primary Care Provider: Rosaura Oates Condition: Stable Discharge Medications: New acetaminophen 500 mg Tablet 1,000 mg PO Q6H PRNQty: 40 0RF docusate sodium 100 mg Capsule 100 mg PO DAILY PRN (Reason: constipation) Qty: 30 0RF hydroxyzine pamoate 25 mg Capsule 25 mg PO TID PRN (Reason: anxiety) Qty: 15 0RF polyethylene glycol 3350 17 gram/dose powder 17 g PO DAILY PRN (Reason: constipation) Qty: 510 0RF nifedipine 60 mg tablet extended release 60 mg PO DAILY Qty: 30 0RF ibuprofen 600 mg Tablet 600 mg PO Q6H PRNQty: 40 0RF Continued multivitamin [Multiple Vitamins] Tablet 1 tab PO QAM Discontinued metoclopramide HCl [Reglan] 10 mg tablet 10 mg PO Q6H PRN (Reason: nausea and vomiting) Qty: 30 0RF Rx Instructions: Take 1 tablets with Tylenol for headaches. ferrous sulfate 325 mg (65 mg iron) tablet 325 mg PO DAILY Qty: 90 1RF Patient Education: Preeclampsia and Eclampsia After Delivery (GEN) Follow Up Appointments: Rosaura Oates MD [Primary Care Provider, [facility]] - 04/09/25 3:15 pm Forms: [employer] Info Instructions Hospital Course Labs Labs: Laboratory Tests 04/07/25 04/06/25 04/06/25 Range/Units 07:00 17:06 10:50 WBC 6.34 6.21 6.34 (4.50-11.00) K/uL RBC 4.40 4.03 4.30 (4.00-5.20) m/uL Hgb 13.8 12.6 13.6 (12.0-16.0) gm/dL Hct 42.0 38.4 41.4 (33.0-51.0) % MCV 96 95 96 (80-100) fL MCH 31 31 32 (26-34) pg MCHC 33 33 33 (32-36) gm/dL Plt Count 219 225 225 (140-440) K/uL Sodium 138 (135-149) mmol/L Potassium 3.5 L 3.0 L (3.6-5.1) mmol/L Chloride 97 (96-114) mmol/L Carbon Dioxide 29 (20-32) mmol/L Anion Gap 12 (7-15) mEq/L BUN 8 10 6 (5-24) mg/dL Creatinine 0.5 0.7 (0.5-1.5) mg/dL Estimated GFR 130 120 ml/min Glucose 91 (60-115) mg/dL Calcium 8.0 L (8.4-10.6) mg/dL Magnesium (1.5-2.6) mg/dL Total Bilirubin 0.5 (0.1-1.5) mg/dL Direct Bilirubin 0.2 (0.0-0.5) mg/dL AST 45 H 61 H 87 H (12-35) U/L ALT 134 H 156 H 203 H (4-35) U/L Alkaline Phosphatase 156 H (40-150) U/L Total Protein 6.2 (6.0-8.3) g/dL Albumin 3.7 (3.3-5.0) g/dL 04/06/25 04/05/25 04/05/25 Range/Units 05:02 22:57 17:02 WBC 6.14 7.57 7.15 (4.50-11.00) K/uL RBC 3.62 L 3.77 L 3.77 L (4.00-5.20) m/uL Hgb 11.5 L 11.8 L 12.0 (12.0-16.0) gm/dL Hct 34.6 36.3 35.9 (33.0-51.0) % MCV 96 96 95 (80-100) fL MCH 32 31 32 (26-34) pg MCHC 33 33 33 (32-36) gm/dL Plt Count 190 207 188 (140-440) K/uL Sodium (135-149) mmol/L Potassium (3.6-5.1) mmol/L Chloride (96-114) mmol/L Carbon Dioxide (20-32) mmol/L Anion Gap (7-15) mEq/L BUN 5 6 7 (5-24) mg/dL Creatinine 0.5 0.5 0.5 (0.5-1.5) mg/dL Estimated GFR 130 130 130 ml/min Glucose (60-115) mg/dL Calcium (8.4-10.6) mg/dL Magnesium 3.8 H (1.5-2.6) mg/dL Total Bilirubin (0.1-1.5) mg/dL Direct Bilirubin (0.0-0.5) mg/dL AST 75 H 82 H 90 H (12-35) U/L ALT 156 H 168 H 170 H (4-35) U/L Alkaline Phosphatase (40-150) U/L Total Protein (6.0-8.3) g/dL Albumin (3.3-5.0) g/dL 04/05/ Range/Units 10:48 WBC 6.37 (4.50-11.00) K/uL RBC 3.49 L (4.00-5.20) m/uL Hgb 11.1 L (12.0-16.0) gm/dL Hct 33.4 (33.0-51.0) % MCV 96 (80-100) fL MCH 32 (26-34) pg MCHC 33 (32-36) gm/dL Plt Count 167 (140-440) K/uL Sodium (135-149) mmol/L Potassium (3.6-5.1) mmol/L Chloride (96-114) mmol/L Carbon Dioxide (20-32) mmol/L Anion Gap (7-15) mEq/L BUN 8 (5-24) mg/dL Creatinine 0.5 (0.5-1.5) mg/dL Estimated GFR 130 ml/min Glucose (60-115) mg/dL Calcium (8.4-10.6) mg/dL Magnesium (1.5-2.6) mg/dL Total Bilirubin (0.1-1.5) mg/dL Direct Bilirubin (0.0-0.5) mg/dL AST 75 H (12-35) U/L ALT 131 H (4-35) U/L Alkaline Phosphatase (40-150) U/L Total Protein (6.0-8.3) g/dL Albumin (3.3-5.0) g/dL OB Problem List Additional Plan (1) Pre-eclampsia, severe, condition: Problem details: ARMSTRONG, visual changes, edema. 04/04 clinic visit with BP 149/91, AST 50, ALT 76. Started labetalol 100 mg BID as outpatient. On admission, BP 158/82, AST 75, ALT 131. Status: Acute (2) Pulmonary edema: Problem details: Subjective chest pressure on admission. Chest x-ray with mild pulmonary edema. Normal oxygenation and WOB. 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 Culture no growth on 04/06. Status: Acute DS: Summary Vital Signs Vital Signs: Vital Signs Temp Pulse Resp BP BP Pulse Ox O2 Del Method 04/07/25 08:45 97.9 F 71 18 132/84 96 Room Air 04/07/25 05:53 92 20 118/70 99 Room Air 04/07/25 04:25 98.1 F 56 L 20 148/90 H 100 Room Air 04/07/25 03:54 55 L 20 151/93 H 04/07/25 00:00 98.1 F 61 16 138/87 95 Room Air 04/06/25 20:05 97.6 F 73 17 131/84 97 Room Air 04/06/25 16:00 98.0 F 74 16 121/80 97 Room Air 04/06/25 12:30 98.0 F 68 16 133/82 98 Room Air 04/06/25 11:30 66 16 132/84 96 Room Air
--- NOTE | 2025-04-07 16:23 | P.OBPN_ITS ---
OB - PN:Subj Subjective Time Seen by Provider: 07:50 Date Seen: 04/07/25 Interval history: [] OB - PN: Obj Exam Physical Exam: Vital signs: Temp Pulse Resp BP Pulse Ox O2 Del Method 98.5 F 73 18 140/90 H 97 Room Air 04/07/25 16:18 04/07/25 16:18 04/07/25 16:18 04/07/25 16:18 04/07/25 16:18 04/07/25 16:18 OB - PN: Obj Data Labs Labs: Laboratory Results - last 24 hr 04/06/25 04/07/25 17:06 07:00 WBC 6.21 6.34 RBC 4.03 4.40 Hgb 12.6 13.8 Hct 38.4 42.0 MCV 95 96 MCH 31 31 MCHC 33 33 Plt Count 225 219 Potassium 3.5 L BUN 10 8 Creatinine 0.5 Estimated GFR 130 Total Bilirubin 0.5 Direct Bilirubin 0.2 AST 61 H 45 H ALT 156 H 134 H Alkaline Phosphatase 156 H Total Protein 6.2 Albumin 3.7 OB - PN: A/P Delivery Assessment and Plan (1) Pre-eclampsia, severe, condition: Problem details: ARMSTRONG, visual changes, edema. 04/04 clinic visit with BP 149/91, AST 50, ALT 76. Started labetalol 100 mg BID as outpatient. On admission, BP 158/82, AST 75, ALT 131. Status: Acute (2) Pulmonary edema: Problem details: Subjective chest pressure on admission. Chest x-ray with mild pulmonary edema. Normal oxygenation and WOB. 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 Culture no growth on 04/06. Status: Acute
--- NOTE | 2025-04-07 16:32 | P.DS_ITS ---
DS: Providers Provider Date of admission: 04/05/25 12:01 Primary care physician: Rosaura Oates MD Admitting Clinician: Aleisha Mackey MD Consults: 04/05/25 12:39 Consult to Physician [CONS] Routine Comment: Consulting Provider: Zehra Smith Has provider been notified: Yes Attending Physician on discharge: Aleisha Mackey MD DS: Diagnosis Discharge Diagnosis (1) Pre-eclampsia, severe, condition: Status: Acute Problem details: ARMSTRONG, visual changes, edema. 04/04 clinic visit with BP 149/91, AST 50, ALT 76. Started labetalol 100 mg BID as outpatient. On admission, BP 158/82, AST 75, ALT 131. (2) Pulmonary edema: Status: Acute Problem details: Subjective chest pressure on admission. Chest x-ray with mild pulmonary edema. Normal oxygenation and WOB. 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 Culture no growth on 04/06. Discharge Plan Discharge Disposition: Home, Self-Care Date of Admission: 04/05/25 12:01 Attending Provider on Discharge: Adriana Leigh Consulting Providers: Zehra Smith Primary Care Provider: Rosaura Oates Condition: Stable Discharge Medications: New acetaminophen 500 mg Tablet 1,000 mg PO Q6H PRNQty: 40 0RF docusate sodium 100 mg Capsule 100 mg PO DAILY PRN (Reason: constipation) Qty: 30 0RF hydroxyzine pamoate 25 mg Capsule 25 mg PO TID PRN (Reason: anxiety) Qty: 15 0RF polyethylene glycol 3350 17 gram/dose powder 17 g PO DAILY PRN (Reason: constipation) Qty: 510 0RF nifedipine 60 mg tablet extended release 60 mg PO DAILY Qty: 30 0RF ibuprofen 600 mg Tablet 600 mg PO Q6H PRNQty: 40 0RF Continued multivitamin [Multiple Vitamins] Tablet 1 tab PO QAM Discontinued metoclopramide HCl [Reglan] 10 mg tablet 10 mg PO Q6H PRN (Reason: nausea and vomiting) Qty: 30 0RF Rx Instructions: Take 1 tablets with Tylenol for headaches. ferrous sulfate 325 mg (65 mg iron) tablet 325 mg PO DAILY Qty: 90 1RF Patient Education: Preeclampsia and Eclampsia After Delivery (GEN) Follow Up Appointments: Rosaura Oates MD [Primary Care Provider, [facility]] - 04/09/25 3:15 pm Forms: [email or web address] Info Instructions Hospital Course Labs Labs: Laboratory Tests 04/07/25 04/06/25 04/06/25 Range/Units 07:00 17:06 10:50 WBC 6.34 6.21 6.34 (4.50-11.00) K/uL RBC 4.40 4.03 4.30 (4.00-5.20) m/uL Hgb 13.8 12.6 13.6 (12.0-16.0) gm/dL Hct 42.0 38.4 41.4 (33.0-51.0) % MCV 96 95 96 (80-100) fL MCH 31 31 32 (26-34) pg MCHC 33 33 33 (32-36) gm/dL Plt Count 219 225 225 (140-440) K/uL Sodium 138 (135-149) mmol/L Potassium 3.5 L 3.0 L (3.6-5.1) mmol/L Chloride 97 (96-114) mmol/L Carbon Dioxide 29 (20-32) mmol/L Anion Gap 12 (7-15) mEq/L BUN 8 10 6 (5-24) mg/dL Creatinine 0.5 0.7 (0.5-1.5) mg/dL Estimated GFR 130 120 ml/min Glucose 91 (60-115) mg/dL Calcium 8.0 L (8.4-10.6) mg/dL Magnesium (1.5-2.6) mg/dL Total Bilirubin 0.5 (0.1-1.5) mg/dL Direct Bilirubin 0.2 (0.0-0.5) mg/dL AST 45 H 61 H 87 H (12-35) U/L ALT 134 H 156 H 203 H (4-35) U/L Alkaline Phosphatase 156 H (40-150) U/L Total Protein 6.2 (6.0-8.3) g/dL Albumin 3.7 (3.3-5.0) g/dL 04/06/25 04/05/25 04/05/25 Range/Units 05:02 22:57 17:02 WBC 6.14 7.57 7.15 (4.50-11.00) K/uL RBC 3.62 L 3.77 L 3.77 L (4.00-5.20) m/uL Hgb 11.5 L 11.8 L 12.0 (12.0-16.0) gm/dL Hct 34.6 36.3 35.9 (33.0-51.0) % MCV 96 96 95 (80-100) fL MCH 32 31 32 (26-34) pg MCHC 33 33 33 (32-36) gm/dL Plt Count 190 207 188 (140-440) K/uL Sodium (135-149) mmol/L Potassium (3.6-5.1) mmol/L Chloride (96-114) mmol/L Carbon Dioxide (20-32) mmol/L Anion Gap (7-15) mEq/L BUN 5 6 7 (5-24) mg/dL Creatinine 0.5 0.5 0.5 (0.5-1.5) mg/dL Estimated GFR 130 130 130 ml/min Glucose (60-115) mg/dL Calcium (8.4-10.6) mg/dL Magnesium 3.8 H (1.5-2.6) mg/dL Total Bilirubin (0.1-1.5) mg/dL Direct Bilirubin (0.0-0.5) mg/dL AST 75 H 82 H 90 H (12-35) U/L ALT 156 H 168 H 170 H (4-35) U/L Alkaline Phosphatase (40-150) U/L Total Protein (6.0-8.3) g/dL Albumin (3.3-5.0) g/dL 04/05/25 Range/Units 10:48 WBC 6.37 (4.50-11.00) K/uL RBC 3.49 L (4.00-5.20) m/uL Hgb 11.1 L (12.0-16.0) gm/dL Hct 33.4 (33.0-51.0) % MCV 96 (80-100) fL MCH 32 (26-34) pg MCHC 33 (32-36) gm/dL Plt Count 167 (140-440) K/uL Sodium (135-149) mmol/L Potassium (3.6-5.1) mmol/L Chloride (96-114) mmol/L Carbon Dioxide (20-32) mmol/L Anion Gap (7-15) mEq/L BUN 8 (5-24) mg/dL Creatinine 0.5 (0.5-1.5) mg/dL Estimated GFR 130 ml/min Glucose (60-115) mg/dL Calcium (8.4-10.6) mg/dL Magnesium (1.5-2.6) mg/dL Total Bilirubin (0.1-1.5) mg/dL Direct Bilirubin (0.0-0.5) mg/dL AST 75 H (12-35) U/L ALT 131 H (4-35) U/L Alkaline Phosphatase (40-150) U/L Total Protein (6.0-8.3) g/dL Albumin (3.3-5.0) g/dL OB Problem List Additional Plan (1) Pre-eclampsia, severe, condition: Problem details: ARMSTRONG, visual changes, edema. 04/04 clinic visit with BP 149/91, AST 50, ALT 76. Started labetalol 100 mg BID as outpatient. On admission, BP 158/82, AST 75, ALT 131. Status: Acute (2) Pulmonary edema: Problem details: Subjective chest pressure on admission. Chest x-ray with mild pulmonary edema. Normal oxygenation and WOB. 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 Culture no growth on 04/06. Status: Acute DS: Summary Vital Signs Vital Signs: Vital Signs Temp Pulse Resp BP BP Pulse Ox O2 Del Method 04/07/25 16:18 98.5 F 73 18 134/85 97 Room Air 04/07/25 11:58 98.4 F 85 18 116/76 99 Room Air 04/07/25 08:45 97.9 F 71 18 132/84 96 Room Air 04/07/25 05:53 92 20 118/70 99 Room Air 04/07/25 04:25 98.1 F 56 L 20 148/90 H 100 Room Air 04/07/25 03:54 55 L 20 151/93 H 04/07/25 00:00 98.1 F 61 16 138/87 95 Room Air 04/06/25 20:05 97.6 F 73 17 131/84 97 Room Air
--- NOTE | 2025-04-07 17:29 | P.OBPN_ITS ---
OB - PN:Subj Subjective Time Seen by Provider: 08:00 Date Seen: 04/07/25 Interval history: Patient seen on rounds this morning. Reports decreased feelings of chest tightness. No headache at the time of our visit. Swelling in extremities improved. Had some mild uterine cramping when up and walking around and continues to have some lochia. Acknowledges feeling anxious. Feels like nifedipine makes her feel increased warmth and then have chills at times. No difficulty breathing. No RUQ pain. Has decided to switch to formula exclusively. OB - PN: Obj Exam Physical Exam: Vital signs: Temp Pulse Resp BP Pulse Ox O2 Del Method 98.5 F 69 18 142/91 H 97 Room Air 04/07/25 16:18 04/07/25 17:08 04/07/25 16:18 04/07/25 17:08 04/07/25 17:08 04/07/25 17:08 Constitutional: Constitutional: no acute distress Routine Respiratory Exam: Respiratory: Present CTA bilaterally; Absent crackles or wheezes Routine Cardiovascular Exam: Cardiovascular: Present RRR and murmur (2+/6 systolic murmur) Routine Abdominal Exam: Fundus: Present firm Routine Extremities Exam: Comments: 1+ edema in b/l LE Routine Neurological Exam: Neurological: Present alert, oriented X3 and moving all extremities; Absent clonus OB - PN: Obj Data Labs Labs: Laboratory Results - last 24 hr 04/06/25 04/07/25 17:06 07:00 WBC 6.34 RBC 4.40 Hgb 13.8 Hct 42.0 MCV 96 MCH 31 MCHC 33 Plt Count 219 Potassium 3.5 L BUN 10 8 Creatinine 0.5 Estimated GFR 130 Total Bilirubin 0.5 Direct Bilirubin 0.2 AST 61 H 45 H ALT 156 H 134 H Alkaline Phosphatase 156 H Total Protein 6.2 OB - PN: A/P Delivery Assessment and Plan (1) Pre-eclampsia, severe, condition: Problem details: ARMSTRONG, visual changes, edema. 04/04 clinic visit with BP 149/91, AST 50, ALT 76. Started labetalol 100 mg BID as outpatient. On admission, BP 158/82, AST 75, ALT 131. Status: Acute Assessment and Plan: Labs improving today. AST, ALT downtrending. Nifedipine increased to 60 mg QD this morning. Unfortunately, BP have increased throughout the day, now > 140/90. Additional 30 mEq ordered for this evening. Plan to stay additional midnight in light of BP that are not yet at goal. Moving forward - plan for: - nifedipine 60 mg in AM - nifedipine 30 mg in PM - AM labs: AST, ALT, Creatinine, Hgb, Plt. (2) Pulmonary edema: Problem details: Subjective chest pressure on admission. Chest x-ray with mild pulmonary edema. Normal oxygenation and WOB. Status: Acute Assessment and Plan: Subjectively improving. Normal vitals. No indication to repeat CXR at this time. S/p two doses of IV lasix. 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 Culture no growth on 04/06. Status: Acute (4) Hypokalemia: Problem details: 3.0 on 04/06, s/p two doses of oral repletion. Status: Acute Assessment and Plan: Additional 20 mEq oral KCL given this morning. Plan to recheck K+ with AM labs.
[2025-04-08] VITALS (7 sets, daily range): BP systolic 111–154; BP diastolic 75–99; PULSE 76–93; RESP 16–18; TEMP 36.6–36.8; O2SAT 97–99
[2025-04-08] MEDS: IBUPROFEN 600 MG TABLET PO ×2 (01:09→08:42)
[2025-04-08 06:25] LABS: Hemoglobin* 14.6 gm/dL (12.0-16.0)
[2025-04-08 06:34] LABS: Alanine Aminotransferase* 93 U/L (4-35); Aspartate Amino Transferase* 30 U/L (12-35); Creatinine* 0.5 mg/dL (0.5-1.5); Estimated Glomerular Filt Rate 130 ml/min; Potassium* 3.5 mmol/L (3.6-5.1)
--- NOTE | 2025-04-08 12:08 | P.DS_ITS ---
DS: Providers Provider Time Seen by Provider: 07:00 Date Seen: 04/08/25 Date of admission: 04/05/25 12:01 Primary care physician: Rosaura Oates MD Admitting Clinician: Aleisha Mackey MD Consults: 04/05/25 12:39 Consult to Physician [CONS] Routine Comment: Consulting Provider: Zehra Smiht Has provider been notified: Yes Attending Physician on discharge: Isabelle Lundberg MD Date of Discharge: 04/08/25 DS: Diagnosis Discharge Diagnosis (1) Hypokalemia: Status: Acute Problem details: 3.0 on 04/06, s/p two doses of oral repletion. 3.5 on day of discharge. Likely 2/2 to lasix. 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 Culture no growth on 04/06. Stopped abx . (3) Pulmonary edema: Status: Acute Problem details: Subjective chest pressure on admission. Chest x-ray with mild pulmonary edema. Normal oxygenation and WOB. lungs clear. (4) Pre-eclampsia, severe, condition: Status: Acute Problem details: ARMSTROGN, visual changes, edema. 04/04 clinic visit with BP 149/91, AST 50, ALT 76. Started labetalol 100 mg BID as outpatient. On admission, BP 158/82, AST 75, ALT 131. LFTs are trending down. Headache has greatly resolved. BP well controlled today on nifedipine 60mg BID. Exam Const: Vital Signs, click to edit/add: Vital Signs - 24 hr 04/07/25 16:18 04/07/25 17:08 04/07/25 17:22 Temperature 98.5 F Pulse Rate [Pulse Oximeter] 73 69 71 Respiratory Rate 18 Blood Pressure [Le ft Arm] 134/85 142/91 H 145/95 H Pulse Oximetry 97 97 Oxygen Delivery Me thod Room Air Room Air 04/07/25 20:04 04/08/25 01:04 04/08/25 01:32 Temperature 97.7 F 98 F Pulse Rate [Pulse Oximeter] 80 80 Respiratory Rate 18 18 Blood Pressure [Le ft Arm] 125/79 150/94 H 154/99 H Pulse Oximetry 97 97 Oxygen Delivery Me thod Room Air Room Air 04/08/25 04:30 04/08/25 08:30 Temperature 98.2 F Pulse Rate [Pulse Oximeter] 80 77 Respiratory Rate 17 16 Blood Pressure [Le ft Arm] 118/76 129/85 Pulse Oximetry 99 Oxygen Delivery Me thod Room Air Documenting provider has reviewed patient's vital signs: yes Common normals: no apparent distress General appearance: cooperative and comfortable HENMT: Common normals: normocephalic Head and scalp: normocephalic Neck & C-Spine: Common normals: full ROM Resp: Common normals: normal respiratory effort and clear to auscultation bilaterally Auscultation: clear to auscultation bilaterally GI: Common normals: Normal to inspection, nondistended, normoactive bowel sounds present : Bladder/kidney exam: no CVA tenderness Back & Pelvis: General back: no CVA tenderness Extremity: Common normals: full ROM and no calf tenderness Other: trace edema bilaterally OB - DS: Summary Hospital Course Hospital Course: The patient is a 29 year old G 2 P 2 s/p vaginal delivery was admitted to the [facility] on 04/05/25 for Preeclampsia. Patient had elevated BP, headache, vision changes, pulmonary edema and elevated LFTs. She received Mag 24 hours. She was started on labetalol, however became bradycardic. Was transitioned to nifedipine and required a day of titration. She was transitioned to 60 mg bid on morning of 04/08 and she had well controlled blood pressures throughout the day. She was sent home with home blood pressure cuff and encouraged to call with elevations in blood pressure. We reviewed reasons to return to care. We considered starting sertraline as patient has been on this in the past. However, she felt her anxiety was related to the hospital stay and not due to period. Wanted to see how she felt after returning home. Status at Discharge Functional status at discharge: independent ambulation Overall status at discharge: patient is back to baseline Time Spent with Patient Time attestation: Total time spent providing and/or coordinating discharge services: 45 Time spent: Greater than 30 minutes Discharge Plan Discharge Disposition: Home, Self-Care Date of Admission: 04/05/25 12:01 Attending Provider on Discharge: Isabelle Lundberg Consulting Providers: Zehra Smith Primary Care Provider: Rosaura Oates Condition: Stable Anticipated Discharge Date/Time: 04/08/25 16:00 Discharge Medications: New acetaminophen 500 mg Tablet 1,000 mg PO Q6H PRNQty: 40 0RF docusate sodium 100 mg Capsule 100 mg PO DAILY PRN (Reason: constipation) Qty: 30 0RF hydroxyzine pamoate 25 mg Capsule 25 mg PO TID PRN (Reason: anxiety) Qty: 15 0RF polyethylene glycol 3350 17 gram/dose powder 17 g PO DAILY PRN (Reason: constipation) Qty: 510 0RF ibuprofen 600 mg Tablet 600 mg PO Q6H PRNQty: 40 0RF nifedipine 30 mg Tablet Extended Release 60 mg PO BID 90 Days Qty: 360 0RF Continued multivitamin [Multiple Vitamins] Tablet 1 tab PO QAM Discontinued metoclopramide HCl [Reglan] 10 mg tablet 10 mg PO Q6H PRN (Reason: nausea and vomiting) Qty: 30 0RF Rx Instructions: Take 1 tablets with Tylenol for headaches. ferrous sulfate 325 mg (65 mg iron) tablet 325 mg PO DAILY Qty: 90 1RF Discharge Orders: Discharge Order (Routine); Ordered 04/08/25 Ordered By: Isabelle Lundberg Patient Education: Preeclampsia and Eclampsia After Delivery (GEN) Activity Level: Activity as Tolerated Activity Detail: Pelvic rest x 6 weeks after delivery Discharge Diet: Regular Follow Up Appointments: Rosaura Oates MD [Primary Care Provider, Family Practice] - 04/09/25 3:15 pm Forms: MyHealth Info Instructions Discharge Comments: Please see Dr Oates at [facility] 04/09 at 3:15 PM
[2025-04-08] MEDS: ACETAMINOPHEN 500 MG TABLET 1000 MG PO (14:23)
== END 2025-04-08 17:21 | disposition home or self-care (01) | DRG 561 ==
LOC: OB OUT 04-07 13:42
PROVIDERS: Family Medicine; Admitting Provider Family Medicine; PCP Family Medicine; Visit Provider Family Medicine
DX: O14.15 Severe pre-eclampsia, complicating the puerperium (principal); O12.05 Gestational edema, complicating the puerperium; J81.0 Acute pulmonary edema; O86.20 Urinary tract infection following delivery, unspecified; N39.0 Urinary tract infection, site not specified; E87.6 Hypokalemia
CPT/HCPCS: 36415; 71046; 80048; 80076; 82565; 83735; 84132; 84450; 84460; 84520; 85018; 85027; 85049; 99199; G0463; A9270; J1938; J3475; J7120